=== PATIENT | male | born 1970 | race Caucasian/White ===

== ENCOUNTER → 2018-07-22 | Outpatient (CLI) | payer OTHER ==
[~2018-07-22] MED LIST: AMOX500C2 PO; HYDR-4226 PO; METFORMIN; NAPR-1071 PO; [UNRECOGNIZED DRUG - REMARK]
== END ==
LOC: WOUNDCARE 12:55
PROVIDERS: ATTEND Surgery
DX: L97.521 Non-pressure chronic ulcer of other part of left foot limited to breakdown of skin (principal); L97.321 Non-pressure chronic ulcer of left ankle limited to breakdown of skin; L98.491 Non-pressure chronic ulcer of skin of other sites limited to breakdown of skin; B35.3 Tinea pedis; B35.4 Tinea corporis; L98.1 Factitial dermatitis
CPT/HCPCS: 99215

== ENCOUNTER → 2018-07-29 | Outpatient (CLI) | payer OTHER | LOC: WOUNDCARE 13:17 | PROVIDERS: ATTEND Surgery | DX: L97.521 Non-pressure chronic ulcer of other part of left foot limited to breakdown of skin (principal); L97.321 Non-pressure chronic ulcer of left ankle limited to breakdown of skin; B35.3 Tinea pedis; L98.1 Factitial dermatitis | CPT/HCPCS: 99213 ==

== ENCOUNTER → 2018-08-12 | Outpatient (CLI) | payer OTHER | LOC: WOUNDCARE 13:05 | PROVIDERS: ATTEND Surgery | DX: L97.522 Non-pressure chronic ulcer of other part of left foot with fat layer exposed (principal); L97.321 Non-pressure chronic ulcer of left ankle limited to breakdown of skin; B35.3 Tinea pedis | CPT/HCPCS: 99212 ==

== ENCOUNTER → 2018-08-21 | Outpatient (CLI) | payer OTHER | LOC: WOUNDCARE 13:07 | PROVIDERS: ATTEND Surgery | DX: L97.522 Non-pressure chronic ulcer of other part of left foot with fat layer exposed (principal); B35.3 Tinea pedis | CPT/HCPCS: 99212 ==

== ENCOUNTER → 2018-08-26 | Outpatient (CLI) | payer OTHER | LOC: WOUNDCARE 13:08 | PROVIDERS: ATTEND Surgery | DX: L97.522 Non-pressure chronic ulcer of other part of left foot with fat layer exposed (principal); B35.3 Tinea pedis | CPT/HCPCS: 99212 ==

== ENCOUNTER → 2018-09-10 | Outpatient (CLI) | payer OTHER | LOC: WOUNDCARE 13:02 | PROVIDERS: ATTEND Surgery | DX: B35.3 Tinea pedis (principal); L97.522 Non-pressure chronic ulcer of other part of left foot with fat layer exposed | CPT/HCPCS: 99212 ==

== ENCOUNTER → 2019-04-21 | Outpatient (CLI) | payer OTHER | LOC: CARD 08:49 | PROVIDERS: ATTEND Internal Medicine Cardiovascular Disease | DX: E11.9 Type 2 diabetes mellitus without complications (principal); E78.5 Hyperlipidemia, unspecified; R07.9 Chest pain, unspecified; I51.7 Cardiomegaly; Z72.0 Tobacco use | CPT/HCPCS: 93306 ==

== ENCOUNTER → 2019-04-25 | Outpatient (CLI) | payer OTHER ==
[~2019-04-25] VITALS: Ht 183 cm; Wt 78.0 kg
[~2019-04-25] MED LIST changes: +CATHETER FLUSH 10 ML SYR IV PRN
--- NOTE | 2019-04-25 19:58 | STRESS TEST ---
DATE OF SERVICE: 04/25/2019 RESTING AND POST EXERCISE TECHNETIUM-99M TETROFOSMIN SPECT CT IMAGING ORDERING PHYSICIAN: Dr. Graham. CLINICAL DIAGNOSIS: Chest discomfort, diabetes mellitus, hyperlipidemia. Baseline images were carried out after injection of 10.78 mCi of technetium-99m Tetrofosmin. This was followed by exercise on a treadmill. [place] protocol was employed. Heart rate and blood pressure response to exercise were normal. There was considerable baseline artifact with exercise. There did not appear to be significant ST segment depression. There was approximately [address] segment depression in the immediate post-exercise phase. After the patient had attained more than 85% of maximum predicted heart rate and had indicated that he would not be able to go for more than another minute, 10.78 mCi of technetium-99m Tetrofosmin were injected and the exercise was continued for another minute. The patient attained 101% of maximum predicted heart rate. Test was stopped on account of fatigue. Review of images at rest and following stress does not indicate any significant perfusion defects consistent with myocardial ischemia or infarction. Gated images show normal global left ventricular systolic function with normal regional wall motion. Left ventricular ejection fraction is calculated to be 64%. Left ventricular end diastolic volume is 64 mL. TID is absent (1.05). CONCLUSIONS: 1. No evidence of any significant myocardial ischemia or infarction on this study. 2. Normal regional wall motion. 3. Normal global left ventricular systolic function with a calculated ejection fraction of 64%. Job ID: [id number] DocumentID: [id number] Dictated Date: 04/25/2019 17:35:13 Real Estate Closer Date: 04/25/2019 19:57:37 Dictated By: RICHARD GRAHAM MD, MA, FACP, FACC,
== END ==
LOC: CARD 07:38
PROVIDERS: ATTEND Internal Medicine Cardiovascular Disease
DX: R07.9 Chest pain, unspecified (principal); E11.9 Type 2 diabetes mellitus without complications; E78.5 Hyperlipidemia, unspecified; Z72.0 Tobacco use
CPT/HCPCS: 78452; 93017

== ENCOUNTER 2019-07-05 07:36 | Emergency (ER) | payer OTHER ==
[~2019-07-05] VITALS: Ht 182.8 cm; Wt 81.6 kg
[2019-07-05] VITALS (10 sets, daily range): BP systolic 69–114; BP diastolic 43–75
[~2019-07-05 07:36] MED LIST changes: -CATHETER FLUSH 10 ML SYR IV PRN
[2019-07-05 07:53] LABS: BASOPHILS % (AUTO) 0 % (0-10); EOSINOPHILS # (AUTO) 0.2 10^3/uL (0.0-0.3); EOSINOPHILS % (AUTO) 2 % (0-10); HEMATOCRIT 25 % (40-54); LYMPHOCYTES # (AUTO) 4.8 X 10^3 (1.0-4.0); LYMPHOCYTES % (AUTO) 46 % (12-44); MEAN CORPUSCULAR HEMOGLOBIN 31 PG (25-34); MEAN CORPUSCULAR HGB CONC 33 G/DL (32-36); MEAN CORPUSCULAR VOLUME 95 FL (80-99); MEAN PLATELET VOLUME 9.4 FL (7.4-10.4); MONOCYTES # (AUTO) 0.7 X 10^3 (0.0-1.0); MONOCYTES % (AUTO) 6 % (0-12); NEUTROPHILS # (AUTO) 4.8 X 10^3 (1.8-7.8); NEUTROPHILS % (AUTO) 46 % (42-75); PLATELET COUNT 192 10^3/uL (130-400); RED CELL DISTRIBUTION WIDTH 12.4 % (10.0-14.5); WHITE BLOOD COUNT 10.5 10^3/uL (4.3-11.0)
[2019-07-05] MEDS ORDERED: PANTOPRAZOLE 40 MG (PROTONIX) VIAL IV ONE (08:00)
[2019-07-05] MEDS ORDERED: ONDANSETRON 4 MG/2 ML (SDV) Z0FRAN IVP ONE (08:00)
[2019-07-05] MEDS ORDERED: FAMOTIDINE 20MG/2ML IV (PEPCID) IVP ONE (08:00)
[2019-07-05 08:06] LABS: ALBUMIN 2.9 GM/DL (3.2-4.5); CHLORIDE 107 MMOL/L (98-107); POTASSIUM 5.3 MMOL/L (3.6-5.0); SODIUM 137 MMOL/L (135-145)
[2019-07-05 08:07] LABS: CALCIUM 7.9 MG/DL (8.5-10.1)
[2019-07-05 08:09] LABS: GLUCOSE 376 MG/DL (70-105)
[2019-07-05 08:10] LABS: BILIRUBIN,TOTAL 0.2 MG/DL (0.1-1.0); CARBON DIOXIDE 21 MMOL/L (21-32)
[2019-07-05 08:12] LABS: ALKALINE PHOSPHATASE 60 U/L (40-136)
[2019-07-05 08:13] LABS: CREATININE SERUM 1.35 MG/DL (0.60-1.30); GFR ESTIMATED 57
--- OUTSIDE RECORDS SUMMARY | 2019-07-05 08:13 | XMS REPORT ---
Author Sean Ghotra Organization [employer] Address Unknown Phone Unavailable Care Team Providers Care Employment Training Specialist Name Role Phone JARON CHAPA CP Unavailable Allergies, Adverse Reactions, Alerts Substance Reaction Event Type N.K.D.A. Info Not Available Non Drug Allergy Problems Problem Type Condition Code Onset Dates Condition Statu s Assessment Dental examination Z01.20 Active Medications Medication Code System Code Instructions Start Date End Date Status Dosage Metformin HCl [facility] [address]-55 500 MG Orally Twice a day not defined Amoxicillin [facility] [address]-73 500 MG Orally 4 times daily 1 capsule Procedures Procedure Coding System Code Date INTRAORL-PERIAPICAL 1 FILM 19231 CPT-4 D0220 Oct 18, 2015 Billing Notes on claim CPT-4 EC109 Oct 17, 2 016 LTD ORAL EVALUATION - PROBLEM FOCUS CPT-4 D0140 Oct 18, 2015 Vital Signs Date/Time: Oct 18, 2015 Blood Pressure Diastolic 91 mmHg Blood Pressure Systolic 131 mmHg Results No Known Results Summary Purpose [employer] Submission
--- OUTSIDE RECORDS SUMMARY | 2019-07-05 08:13 | XMS REPORT ---
Author Author [employer] Organization [employer] Address [address] [address] Care Team Providers Care Paperhanger Pipe Name Role Phone SHARONCHJARON Unavailable Unavailable NO, LOCAL PHYSICIAN Unavailable Unavailable NEARING, KALEY Unavailable NEARING, KALEY Unavailable NEARING, KALEY Unavailable CHAYO BABCOCK APRN Unavailable Unavailable MAGGI FERNANDO MD Unavailable Unavailable CHAYO BABCOCK APRN Unavailable Unavailable RICHARD BLUNT MA Unavailable Unavailable Allergies Normalized Allergy Reported Date of Reaction(s) Care Provider Facility Allergy Type classification allergen Allergy Onset DA (11 Unclassified No Known Drug 10-16-2015 - no information CHAYO BABCOCK [facility] Via sources.) Allergies [facility] ([id number]) Medications Medication Ingredient Drug Dose Dates Status Sig Sig Care Class(es) (Normalized) (Original) Provid er no glipiZIDE Sulfonylure Active no GlipiZIDE no information a information Active name (2 (no sources.) phone) no ibuprofen Nonsteroida Active no ibuprofen no information l information Active name (2 Anti-inflam (no sources.) matory Drug phone) no Penicillin no Active no Penicillin G no information G information information Benzathine nam e (2 Benzathine Active (no sources.) phone) Problems Problem Normalized Date of Normalized Normalized Provider Fac ility Classification Problem(s) Problem Problem Problem Sta tus Onset/Resoluti Duration on Other and Cardiomegaly 04-22-2019 - Chronic Active OTONIEL GRIMES Via ill-defined [facility] heart disease [facility] (1 source.) [place] ([id number]) Nonspecific Chest pain, 04-22-2019 - Episodic Active OTONIEL ARMSTRONG Via chest pain (4 unspecified [facility] sources.) [facility] ([id number]) Other Factitial 04-18-2019 - Episodic Active MAGGI FERNANDO VC Via inflammatory dermatitis , MD [facility] condition of Hospital - skin (4 [place] sources.) ([id number]) Disorders of Hyperlipidemia 04-22-2019 - Chronic Active RICHARD ARRIAZA [facility] Via lipid , unspecified [facility] metabolism (4 Hospital - sources.) [place] ([id number]) Chronic ulcer Non-pressure 04-18-2019 - Chronic Active YAHAIRA FERNANDO [facility] Via of skin (21 chronic ulcer , MD [facility] sources.) of other part Hospital - of left foot [place] limited to ([id number]) breakdown of skin Translations: [ NON-PRS CHRONIC ULCER OF LEFT ANKLE LIMI, NON-PRS CHRONIC ULCER SKIN/ SITES LIMITE, NON-PRS CHRONIC ULCER OTH PRT LEFT FOOT ] Mycoses (15 Tinea pedis 04-18-2019 - Episodic Active MAGGI MCCAIN [facility] Via sources.) Translations: , MD [facility] [ [facility]] [place] ([id number]) Residual Tobacco use 04-22-2019 - Episodic Active RICHARD HOFFMAN [facility] Via codes; [facility] unclassified Hospital - (4 sources.) [place] ([id number]) Diabetes Type 2 04-22-2019 - Chronic Active RICHARD HOFFMAN , V Via mellitus diabetes [facility] without mellitus Hospital - complication without [place] (4 sources.) complications ([id number]) Procedures Procedure Normalized Procedure Procedure Result Performer Facility Date 07-12-2017 Dental bitewing single no information no name (no p sophie) [facility] ([id number]) 04-03-2017 Dental bitewing single no information no name (no p sophie) [facility] ([id number]) 07-12-2017 Extraction erupted no information no name (no phone ) [facility] tooth/exr [facility] ([id number]) 06-19-2017 Extraction erupted no information no name (no phone ) [facility] tooth/exr [facility] ([id number]) 04-03-2017 Extraction erupted no information no name (no phone ) [facility] tooth/exr [facility] ([id number]) 07-12-2017 Intraoral periapical no information no name (no phillip ne) [facility] ([id number]) 04-03-2017 Intraoral periapical no information no name (no phillip ne) [facility] ([id number]) 07-12-2017 Limit oral eval problm no information no name (no p sophie) [facility] ([id number]) 04-03-2017 Limit oral eval problm no information no name (no p sophie) [facility] ([id number]) Immunizations The data below is from unstructured sourcesNo immunization records. No Known Immunizations No Known Immunizations No Known Immunizations No Known Immunizations No Known Immunizations No Known Immunizations Results The data below is from unstructured sourcesNo Known Results No known relevant diagnostic tests, laboratory data and/or discharge summary.No known relevant diagnostic tests, laboratory data and/or discharge summary. No Results No Results No Results No Results No Results No Results Vital Signs The data below is from unstructured sources Blood pressure systolic 122 mmHg 2017-04-03 Blood pressure diastolic 83 mmHg 2017-04-03 Blood pressure systolic 133 mmHg 2017-06-19 Blood pressure diastolic 92 mmHg 2017-06-19 Blood pressure systolic 129 mmHg 2017-07-12 Blood pressure diastolic 88 mmHg 2017-07-12 Blood pressure systolic 129 mmHg 2017-07-12 Blood pressure diastolic 88 mmHg 2017-07-12 Interventions No Information Plan of Treatment The data below is from unstructured sources Activity Details Follow Up prn Reason:francisco/hygiene Activity Details Follow Up prn Reason:FRANCISCO Activity Details Follow Up prn Reason:francisco/hygiene Goals No Information Social History No Information Functional Status The data below is from unstructured sourcesNo functional status results. Mental Status No Information Encounters Encounter Normalized Encounter Encounter Diagnosis Care Provi marii Organization Date Type [facility] KALEY NEARING (no [facility] [employer] - DENTAL phone) DENTAL (no phon e) 07-12-2017 - 07-12-2017 06-19-2017 [facility] KAREN Dental caries, KALEY NEARING (no [facility] - DENTAL unspecified phone) DENTAL (no phillip ne) 06-19-2017 - 06-19-2017 04-03-2017 [facility] findings KALEY NEARING (no [facility] [employer] - DENTAL phone) DENTAL (no phon e) 04-03-2017 - 04-03-2017 05-26-2016 [facility] KALEY NEARING (no [facility] [employer] - DENTAL phone) DENTAL (no phon e) 05-26-2016 - 05-26-2016 10-18-2015 [facility] l findings JARON Hummel (n o [facility] - phone) (no phone) 10-18-2015 - 10-18-2015 10-16-2015 Emergency department no information no name (no phillip ne) no organization name - patient visit (no phone) 10-16-2015 10-16-2015 Emergency department no information CHAYO GODINEZ (no [facility] - patient visit phone) [facility] 10-16-2015 (no phone) 07-12-2017 Patient encounter no information no name (no phone) no organization name (no phone) 06-19-2017 Patient encounter no information no name (no phone) no organization name (no phone) 04-03-2017 Patient encounter no information no name (no phone) no organization name (no phone) 04-25-2019 Patient encounter no information RICHARD HOFFMAN MA FSCA I [facility] procedure (no phone) [facility] (no phone) 04-21-2019 Patient encounter no information ALI DALTON CAMARA FSCA I [facility] procedure (no phone) [facility] (no phone) 09-10-2018 Patient encounter no information no name (no phone) no organization name procedure (no phone) 09-10-2018 Patient encounter no information MAGGI FERNANDO MD (no [facility] procedure phone) [facility] (no phone) 08-26-2018 Patient encounter no information no name (no phone) no organization name procedure (no phone) 08-26-2018 Patient encounter no information MAGGI FERNANDO MD (no [facility] procedure phone) [facility] (no phone) 08-21-2018 Patient encounter no information no name (no phone) no organization name procedure (no phone) 08-21-2018 Patient encounter no information MAGGI FERNANDO MD (no [facility] procedure phone) [facility] (no phone) 08-12-2018 Patient encounter no information MAGGI FERNANDO MD (no [facility] procedure phone) [facility] (no phone) 07-29-2018 Patient encounter no information no name (no phone) no organization name procedure (no phone) 07-29-2018 Patient encounter no information MAGGI FERNANDO MD (no [facility] procedure phone) [facility] (no phone) 07-22-2018 Patient encounter no information no name (no phone) no organization name procedure (no phone) 07-22-2018 Patient encounter no information MAGGI FERNANDO MD (no [facility] procedure phone) [facility] (no phone) Medical Equipment No Information Payers No Information Summary Purpose [employer]ClinicalWorks Submission Discharge Instructions No hospital discharge instructions. Additional Source Comments This clinical document has been generated using [employer] software that has been certified by the Office of the National Coordinator for Health Information Technology (ONC 15.99.04.3023.Diam.31.00.0.381688) and the National Committee for Beet Flumer (NCQA, as an eMeasure certified technology). FOR RECORDS PERTAINING TO PATIENTS WHO ARE OR HAVE BEEN ENROLLED IN A CHEMICAL D EPENDENCY/SUBSTANCE ABUSE PROGRAM, SOME INFORMATION MAY BE OMITTED. This clinica l summary was aggregated from multiple sources. Caution should be exercised in using it in the provision of clinical care. This summary normalizes information from multiple sources, and as a consequence, information in this document may ma terially change the coding, format and clinical context of patient data. In geremias tion, data may be omitted in some cases. CLINICAL DECISIONS SHOULD BE BASED ON T HE PRIMARY CLINICAL RECORDS. [employer] provides no warranty or guara ntee of the accuracy or completeness of information in this document.The followi ng information is based on time limited clinical information UNRECOGNIZED CONTENT PROVIDED BELOW FOR UNRECOGNIZED SECTION MEDICAL (GENERAL) HISTORY Type Description Date Medical History Diabetes Medical History Anxiety
--- OUTSIDE RECORDS SUMMARY | 2019-07-05 08:13 | XMS REPORT ---
Author Author Sean BAINS Organization [facility] Address Unknown Care Team Providers Care Tool Room Machinist Name Role Phone KALEY BAINS Unavailable PROBLEMS Unknown Problems ALLERGIES No Known Allergies ENCOUNTERS Encounter Location Date Diagnosis [facility] [address] [id number] [address] [place] [address] [phone] July, Dental examination Z01.20 an d Dental caries K02.9 [facility] [address] [id number] [address] [place] [address] [id number] Jun, Dental caries K02.9 [facility] [address] [id number] [address] [place] [address] [phone] Mar, Dental examination Z01.20 an d Dental caries K02.9 [facility] [address] [id number] [address] [place] [address] [phone] May, Dental examination Z01.20 an d Dental caries K02.9 [facility] [address] [id number] [address] [address] Oct, Dental examination Z01.20 IMMUNIZATIONS No Known Immunizations SOCIAL HISTORY Never Assessed REASON FOR VISIT david PLAN OF CARE Activity Details Follow Up prn Reason:minerva/hygiene VITAL SIGNS Blood pressure systolic 129 mmHg 2017-07-12 Blood pressure diastolic 88 mmHg 2017-07-12 MEDICATIONS Medication Instructions Dosage Frequency Start Date End Date Duration S tatus ibuprofen Active Penicillin G Benzathine Active Metformin HCl 500 MG Orally Twice a day 12h Active GlipiZIDE Active RESULTS No Results PROCEDURES Procedure Date Ordered Result Body Site LTD ORAL EVALUATION - PROBLEM FOCUS July 12, 2017 INTRAORL-PERIAPICAL 1 FILM [id number] July 12, 2017 EXTRAC ERUPTED TOOTH/EXPOSED ROOT July 12, 2017 BITEWING - SINGLE FILM July 12, 2017 INSTRUCTIONS MEDICATIONS ADMINISTERED No Known Medications MEDICAL (GENERAL) HISTORY Type Description Date Medical History Diabetes Medical History Anxiety
--- OUTSIDE RECORDS SUMMARY | 2019-07-05 08:13 | XMS REPORT | Continuity of Care Document ---
Author Organization Unknown Address Unknown Phone Unavailable Allergies Active Description Code Type Severity Reaction Onset Reported/Identified Relationship to Patient Clinical Status Yes No Known Drug Allergies [id number] Drug Allergy Unknown N/A 10/16/2015 Medications There is no data. Problems Date Dx Coded Attending Type Code Diagnosis Diagnosed By 10/16/2015 CHAYO BABCOCK APRN Ot K02 .9 DENTAL CARIES, UNSPECIFIED 10/16/2015 CHAYO BABCOCK APRN Ot K08 .8 OTHER SPECIFIED DISORDERS OF TEETH AND S 10/18/2015 CHAYO BABCOCK APRN Ot K02 .9 DENTAL CARIES, UNSPECIFIED 10/18/2015 CHAYO BABCOCK APRN Ot K08 .8 OTHER SPECIFIED DISORDERS OF TEETH AND S 10/21/2015 CHAYO BABCOCK APRN Ot K02 .9 DENTAL CARIES, UNSPECIFIED 10/21/2015 CHAYO BABCOCK APRN Ot K08 .8 OTHER SPECIFIED DISORDERS OF TEETH AND S 10/21/2015 CHAYO BABCOCK APRN Ot K02 .9 DENTAL CARIES, UNSPECIFIED 10/21/2015 CHAYO BABCOCK APRN Ot K08 .8 OTHER SPECIFIED DISORDERS OF TEETH AND S 10/23/2015 CHAYO BABCOCK APRN Ot K02 .9 DENTAL CARIES, UNSPECIFIED 10/23/2015 CHAYO BABCOCK APRN Ot K08 .8 OTHER SPECIFIED DISORDERS OF TEETH AND S 07/29/2018 MAGGI FERNANDO MD Ot B35 .3 TINEA PEDIS 07/29/2018 MAGGI FERNANDO MD Ot B35 .4 TINEA CORPORIS 07/29/2018 MAGGI FERNANDO MD Ot L97.321 NON-PRS CHRONIC ULCER OF LEFT ANKLE LIMI 07/29/2018 MAGGI FERNANDO MD Ot L97.521 NON-PRS CHRONIC ULCER OTH PRT L FOOT HWOARD 07/29/2018 MAGGI FERNANDO MD Ot L98 .1 FACTITIAL DERMATITIS 07/29/2018 MAGGI FERNANDO MD Ot L98.491 NON-PRS CHRONIC ULCER SKIN/ SITES LIMITE 08/01/2018 ABDULLAHI MORALES, MAGGI Magallanes Ot B35 .3 TINEA PEDIS 08/01/2018 ABDULLAHI MORALES, MAGGI Magallanes Ot L97.321 NON-PRS CHRONIC ULCER OF LEFT ANKLE LIMI 08/01/2018 ABDULLAHI MORALES, MAGGI Magallanes Ot L97.521 NON-PRS CHRONIC ULCER OTH PRT L FOOT HOWARD 08/01/2018 MAGGI FERNANDO MD Ot L98 .1 FACTITIAL DERMATITIS 08/16/2018 MAGGI FERNANDO MD Ot B35 .3 TINEA PEDIS 08/16/2018 ABDULLAHI MORALES, MAGGI Magallanes Ot L97.321 NON-PRS CHRONIC ULCER OF LEFT ANKLE LIMI 08/16/2018 MAGGI FERNANDO MD Ot L97.522 NON-PRS CHRONIC ULCER OTH PRT LEFT FOOT 08/23/2018 MAGGI FERNANDO MD Ot B35 .3 TINEA PEDIS 08/23/2018 MAGGI FERNANDO MD Ot L97.522 NON-PRS CHRONIC ULCER OTH PRT LEFT FOOT 08/29/2018 MAGGI FERNANDO MD Ot B35 .3 TINEA PEDIS 08/29/2018 MAGGI FERNANDO MD Ot L97.522 NON-PRS CHRONIC ULCER OTH PRT LEFT FOOT 09/13/2018 MAGGI FERNANDO MD Ot B35 .3 TINEA PEDIS 09/13/2018 ABDULLAHI MORALES, MAGGI Magallanes Ot L97.522 NON-PRS CHRONIC ULCER OTH PRT LEFT FOOT 04/18/2019 MAGGI FERNANDO MD Ot B35 .3 TINEA PEDIS 04/18/2019 ABDULLAHI MORALES, MAGGI Magallanes Ot B35 .4 TINEA CORPORIS 04/18/2019 ABDULLAHI MORALES, MAGGI Magallanes Ot L97.321 NON-PRS CHRONIC ULCER OF LEFT ANKLE LIMI 04/18/2019 MAGGI FERNANDO MD Ot L97.521 NON-PRS CHRONIC ULCER OTH PRT L FOOT HOWARD 04/18/2019 MAGGI FERNANDO MD Ot L98 .1 FACTITIAL DERMATITIS 04/18/2019 MAGGI FERNANDO MD Ot L98.491 NON-PRS CHRONIC ULCER SKIN/ SITES LIMITE 04/18/2019 MAGGI FERNANDO MD Ot B35 .3 TINEA PEDIS 04/18/2019 ABDULLAHI MORALES, MAGGI Magallanes Ot L97.321 NON-PRS CHRONIC ULCER OF LEFT ANKLE LIMI 04/18/2019 ABDULLAHI MORALES, MAGGI Magallanes Ot L97.521 NON-PRS CHRONIC ULCER OTH PRT L FOOT HOWARD 04/18/2019 ABDULLAHI MORALES, MAGGI Magallanes Ot L98 .1 FACTITIAL DERMATITIS 04/18/2019 ABDULLAHI MORALES, MAGGI Magallanes Ot B35 .3 TINEA PEDIS 04/18/2019 ABDULLAHI MORALES, MAGGI Magallanes Ot L97.321 NON-PRS CHRONIC ULCER OF LEFT ANKLE LIMI 04/18/2019 ABDULLAHI MORALES, MAGGI Magallanes Ot L97.522 NON-PRS CHRONIC ULCER OTH PRT LEFT FOOT 04/18/2019 ABDULLAHI MORALES, MAGGI Magallanes Ot B35 .3 TINEA PEDIS 04/18/2019 ABDULLAHI MORALES, MAGGI Magallanes Ot L97.522 NON-PRS CHRONIC ULCER OTH PRT LEFT FOOT 04/18/2019 ABDULLAHI MORALES, MAGGI Magallanes Ot B35 .3 TINEA PEDIS 04/18/2019 ABDULLAHI MORALES, MAGGI Magallanes Ot L97.522 NON-PRS CHRONIC ULCER OTH PRT LEFT FOOT 04/18/2019 ABDULLAHI MORALES, MAGGI Magallanes Ot B35 .3 TINEA PEDIS 04/18/2019 ABDULLAHI MORALES, MAGGI Magallanes Ot L97.522 NON-PRS CHRONIC ULCER OTH PRT LEFT FOOT 04/22/2019 DALTON MORALES FACC, ALI FACP CCDS Ot E11.9 TYPE 2 DIABETES MELLITUS WITHOUT COMPLIC 04/22/2019 DALTON MORALES FACC, ALI FACP CCDS Ot E78.5 HYPERLIPIDEMIA, UNSPECIFIED 04/22/2019 DALTON MORALES FACC, ALI FACP CCDS Ot I51.7 CARDIOMEGALY 04/22/2019 DALTON MROALES FACC, ALI FACP CCDS Ot R07.9 CHEST PAIN, UNSPECIFIED 04/22/2019 DALTON MORALES FACC, ALI FACP CCDS Ot Z72.0 TOBACCO USE 04/28/2019 DALTON MORALES FACC, ALI FACP CCDS Ot E11.9 TYPE 2 DIABETES MELLITUS WITHOUT COMPLIC 04/28/2019 DALTON MORALES FACC, ALI FACP CCDS Ot E78.5 HYPERLIPIDEMIA, UNSPECIFIED 04/28/2019 DALTON MORALES FACC, ALI FACP CCDS Ot R07.9 CHEST PAIN, UNSPECIFIED 04/28/2019 DALTON MORALES FACC, ALI FACP CCDS Ot Z72.0 TOBACCO USE 05/01/2019 DALTON MORALES FACC, ALI FACP CCDS Ot E11.9 TYPE 2 DIABETES MELLITUS WITHOUT COMPLIC 05/01/2019 DALTON MORALES FACC, ALI FACP CCDS Ot E78.5 HYPERLIPIDEMIA, UNSPECIFIED 05/01/2019 DALTON MORALES FACC, ALI FACP CCDS Ot R07.9 CHEST PAIN, UNSPECIFIED 05/01/2019 DALTON MORALES FACC, ALI FACP CCDS Ot Z72.0 TOBACCO USE 05/20/2019 DALTON MORALES FACC, ALI FACP CCDS Ot E11.9 TYPE 2 DIABETES MELLITUS WITHOUT COMPLIC 05/20/2019 DALTON MORALES FACC, ALI FACP CCDS Ot E78.5 HYPERLIPIDEMIA, UNSPECIFIED 05/20/2019 DALTON MORALES FACC, ALI FACP CCDS Ot R07.9 CHEST PAIN, UNSPECIFIED 05/20/2019 DALTON MORALES FACC, ALI FACP CCDS Ot Z72.0 TOBACCO USE 07/01/2019 MAGGI FERNANDO MD Ot B35 .3 TINEA PEDIS 07/01/2019 MAGGI FERNANDO MD Ot B35 .4 TINEA CORPORIS 07/01/2019 MAGGI FERNANDO MD Ot L97.321 NON-PRS CHRONIC ULCER OF LEFT ANKLE LIMI 07/01/2019 MAGGI FERNANDO MD Ot L97.521 NON-PRS CHRONIC ULCER OTH PRT L FOOT HOWARD 07/01/2019 MAGGI FERNANDO MD Ot L98 .1 FACTITIAL DERMATITIS 07/01/2019 MAGGI FERNANDO MD Ot L98.491 NON-PRS CHRONIC ULCER SKIN/ SITES LIMITE 07/01/2019 DALTON SOFIAC, RICHARD FACP CCDS Ot E11.9 TYPE 2 DIABETES MELLITUS WITHOUT COMPLIC 07/01/2019 DALTON MORALES [facility], RICHARD FACP CCDS Ot E78.5 HYPERLIPIDEMIA, UNSPECIFIED 07/01/2019 DALTON MORALES FACC, ALI FACP CCDS Ot R07.9 CHEST PAIN, UNSPECIFIED 07/01/2019 DALTON MORALES FACC, ALI FACP CCDS Ot Z72.0 TOBACCO USE 07/01/2019 DALTON MORALES FACC, ALI FACP CCDS Ot E11.9 TYPE 2 DIABETES MELLITUS WITHOUT COMPLIC 07/01/2019 DALTON MORALES FACC, ALI FACP CCDS Ot E78.5 HYPERLIPIDEMIA, UNSPECIFIED 07/01/2019 DALTON MD [facility], ALI FACP CCDS Ot I51.7 CARDIOMEGALY 07/01/2019 DALTON MD FAC, ALI FACP CCDS Ot R07.9 CHEST PAIN, UNSPECIFIED 07/01/2019 DALTON MD FACC, ALI FACP CCDS Ot Z72.0 TOBACCO USE 07/01/2019 DALTON MD FACC, ALI FACP CCDS Ot E11.9 TYPE 2 DIABETES MELLITUS WITHOUT COMPLIC 07/01/2019 DALTON MD FACC, ALI FACP CCDS Ot E78.5 HYPERLIPIDEMIA, UNSPECIFIED 07/01/2019 DALTON MD FAC, ALI FACP CCDS Ot R07.9 CHEST PAIN, UNSPECIFIED 07/01/2019 DALTON MD FACC, ALI FACP CCDS Ot Z72.0 TOBACCO USE 07/02/2019 [facility], ALI FACP CCDS Ot E11.9 TYPE 2 DIABETES MELLITUS WITHOUT COMPLIC 07/02/2019 [facility] MD [facility], ALI FACP CCDS Ot E78.5 HYPERLIPIDEMIA, UNSPECIFIED 07/02/2019 [facility] MD [facility], ALI FACP CCDS Ot R07.9 CHEST PAIN, UNSPECIFIED 07/02/2019 DALTON MD [facility], ALI FACP CCDS Ot Z72.0 TOBACCO USE Procedures There is no data. Results Test Result Range Complete blood count (CBC) with automate d white blood cell (WBC) differential - 07/05/19 07:40 Blood leukocytes automated count (number/volume) 10.5 10*3/uL 4.3-11.0 Blood erythrocytes automated count (number/volume) 2.59 10*6/uL 4.35-5.85 Venous blood hemoglobin measurement (mass/volume) 8.0 g/dL 13.3-17.7 Blood hematocrit (volume fraction) 25 % 40-54 Automated erythrocyte mean corpuscular volume 95 [ foz_us] 80-99 Automated erythrocyte mean corpuscular h emoglobin (mass per erythrocyte) 31 pg 25-34 Automated erythrocyte mean corpuscular h emoglobin concentration measurement (mass/volume) 33 g/dL 32-36 Automated erythrocyte distribution width ratio 12. 4 % 10.0- 14.5 Automated blood platelet count (count/volume) 192 10*3/uL 130-400 Automated blood platelet mean volume measurement 9.4 [foz_us] 7.4-10.4 Automated blood neutrophils/100 leukocytes 46 % 42-75 Automated blood lymphocytes/100 leukocytes 46 % 12-44 Blood monocytes/100 leukocytes 6 % 0-12 Automated blood eosinophils/100 leukocytes 2 % 0-10 Automated blood basophils/100 leukocytes 0 % 0-10 Blood neutrophils automated count (number/volume) 4.8 10*3 1.8-7.8 Blood lymphocytes automated count (number/volume) 4.8 10*3 1.0-4.0 Blood monocytes automated count (number/volume) 0. 7 10*3 0.0-1.0 Automated eosinophil count 0.2 10*3/uL 0 .0-0.3 Automated blood basophil count (count/volume) 0.0 10*3/uL 0.0-0.1 Comprehensive metabolic panel - 07/05/19 07:40 Serum or plasma sodium measurement (moles/volume) 137 mmol/L 135-145 Serum or plasma potassium measurement (moles/volume) 5.3 mmol/L 3.6-5.0 Serum or plasma chloride measurement (moles/volume) 107 mmol/L 98-107 Carbon dioxide 21 mmol/L 21-32 Serum or plasma anion gap determination (moles/volume) 9 mmol/L 5-14 Serum or plasma glucose measurement (mass/volume) 376 mg/dL 70-105 Serum or plasma calcium measurement (mass/volume) 7.9 mg/dL 8.5-10.1 Serum or plasma total bilirubin measurement (mass/volu me) 0.2 mg/dL 0.1-1.0 Serum or plasma protein measurement (mass/volume) 5.0 g/dL 6.4-8.2 Serum or plasma albumin measurement (mass/volume) 2.9 g/dL 3.2-4.5 CALCIUM CORRECTED 8.8 mg/dL 8.5-10.1 Blood type T Indirect antibody screen pa shon - 07/05/19 07:40 ABO+Rh group AP NRG Serum or plasma C reactive protein measu rement (mass/volume) - 07/05/19 07:40 Serum or plasma C reactive protein measurement (mass/v olume) 0.34 mg/dL 0.00-0.50 Encounters ACCT No. Visit Date/Time Discharge Status Pt. Type Provider Facility Loc./Unit Complaint [id number] 04/25/2019 07:38:00 23:59:59 CLS Outpatient RICHARD HOFFMAN MD, FACC, FACP CC DS [facility] CARD CHEST DISCO ORT [id number] 04/21/2019 08:49:00 23:59:59 CLS Outpatient RICHARD HOFFMAN MD, FACC, FACP CC DS [facility] CARD CHEST DISCO MFORT [id number] 09/10/2018 13:02:00 23:59:59 CLS Outpatient MAGGI FERNANDO MD [facility] WOUNDCARE [id number] 08/26/2018 13:08:00 23:59:59 CLS Outpatient MAGGI FERNANDO MD [facility] WOUNDCARE [id number] 08/21/2018 13:07:00 23:59:59 CLS Outpatient MAGGI FERNANDO MD [facility] WOUNDCARE [id number] 08/12/2018 13:05:00 23:59:59 CLS Outpatient MAGGI FERNANDO MD [facility] WOUNDCARE [id number] 07/29/2018 13:17:00 23:59:59 CLS Outpatient MAGGI FERNANDO MD [facility] WOUNDCARE [id number] 07/22/2018 12:55:00 23:59:59 CLS Outpatient MAGGI FERNANDO MD [facility] WOUNDCARE [id number] 10/16/2015 12:08:00 12:31:00 DIS Emergency CHAYO BABCOCK APRN [facility] ER DENTAL PAIN [id number] 07/05/2019 07:54:00 Document Registration
--- OUTSIDE RECORDS SUMMARY | 2019-07-05 08:13 | XMS REPORT ---
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 Name Role Phone KALEY BAINS Unavailable PROBLEMS Unknown Problems ALLERGIES No Known Allergies ENCOUNTERS Encounter Location Date Diagnosis [facility] [address] [id number] [address] [place] [address] [id number] July, Dental examination Z01.20 an d Dental caries K02.9 [facility] [address] [id number] [address] [place] [address] [id number] Jun, Dental caries K02.9 [facility] [address] [id number] [address] [place] [address] [id number] Mar, Dental examination Z01.20 an d Dental caries K02.9 [facility] [address] [id number] [address] [place] [address] [id number] May, Dental examination Z01.20 an d Dental caries K02.9 [facility] [address] [id number] [address], [place] [address] Oct, Dental examination Z01.20 IMMUNIZATIONS No Known Immunizations SOCIAL HISTORY Never Assessed REASON FOR VISIT david PLAN OF CARE Activity Details Follow Up prn Reason:FRANCISCO VITAL SIGNS Blood pressure systolic 133 mmHg 2017-06-19 Blood pressure diastolic 92 mmHg 2017-06-19 MEDICATIONS Medication Instructions Dosage Frequency Start Date End Date Duration S tatus Penicillin G Benzathine Active Metformin HCl 500 MG Orally Twice a day 12h Active GlipiZIDE Active ibuprofen Active RESULTS No Results PROCEDURES Procedure Date Ordered Result Body Site EXTRAC ERUPTED TOOTH/EXPOSED ROOT June 19, 2017 INSTRUCTIONS MEDICATIONS ADMINISTERED No Known Medications MEDICAL (GENERAL) HISTORY Type Description Date Medical History Diabetes Medical History Anxiety
[2019-07-05 08:14] LABS: BUN/CREATININE RATIO 27
[2019-07-05 08:15] LABS: ALANINE AMINOTRANSFERASE 24 U/L (0-55); MAGNESIUM 1.7 MG/DL (1.6-2.4)
[2019-07-05 08:16] LABS: LIPASE 37 U/L (8-78)
[2019-07-05] MEDS ORDERED: NS IV 1000 ML 1,000 ML IV ONE (08:17)
[2019-07-05] MEDS ORDERED: OCTREOTIDE INJECTION 50 MCG in NS (IVPB) 50 ML IV ONE (08:30)
[2019-07-05] MEDS ORDERED: NS IV 500 ML 500 ML ONE (08:37)
[2019-07-05 08:38] LABS: PROTHROMBIN TIME PATIENT 13.7 SEC (12.2-14.7)
--- NOTE | 2019-07-05 08:43 | ED GI ---
General Chief Complaint: Abdominal/GI Problems Stated Complaint: GI BLEED Source of Information: Patient Exam Limitations: No Limitations History of Present Illness Date Seen by Provider: Jul 05, 2019 Time Seen by Provider: 07:37 Initial Comments This 49-year-old gentleman presents to the emergency room with hematemesis and melenic diarrhea at home this morning. EMS reports the amount of blood on scene was profound. He has been hypotensive for EMS with blood pressures in the 80s and 90s systolic. Systolic blood pressures are in the 90s on arrival. Patient is alert and oriented but lethargic. He admits to drinking 2 or 3 shots of hard alcohol whenever he can get it which is more days than not. He denies any history of esophageal varices, ulcers, or other GI bleeding. He denies ever undergoing endoscopy. He is a diabetic with blood sugars in the 300s. He is also undergoing wound care for a right great toe wound. He denies use of any blood thinning medications. Initial temperature for EMS was 94.4. Allergies and Home Medications Allergies Coded Allergies: No Known Drug Allergies (Unverified , 10/16/15) Patient Home Medication List Home Medication List Reviewed: Yes Review of Systems Review of Systems Constitutional: no symptoms reported EENTM: No Symptoms Reported Respiratory: No Symptoms Reported Cardiovascular: No Symptoms Reported Gastrointestinal: See HPI Genitourinary: No Symptoms Reported Musculoskeletal: no symptoms reported Skin: no symptoms reported Psychiatric/Neurological: No Symptoms Reported Endocrine: No Symptoms Reported Hematologic/Lymphatic: See HPI Past Uytogcv-Flpnnn-Lrwkxs Hx Past Med/Social Hx: Reviewed and Corrections made Patient Social History Alcohol Use: Regular Use Recent Hopitalizations: No Seasonal Allergies Seasonal Allergies: No Past Medical History Surgeries: No (none known) Respiratory: No Cardiac: No Neurological: No Reproductive Disorders: No Gastrointestinal: No Musculoskeletal: No Endocrine: Yes Diabetes, Non-Insulin dep HEENT: No Cancer: No Psychosocial: Yes PTSD Physical Exam Vital Signs Vital Signs - First Documented 07/05/19 07:37 Temp 34.7 Pulse 103 Resp 12 B/P (MAP) 100/64 (76) Pulse Ox 97 O2 Delivery Room Air Capillary Refill : Height/Weight/BMI Height: 5'8" Weight: 200lbs. oz. 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4 FL Neutrophils (%) (Auto) 46 42-75 % Lymphocytes (%) (Auto) 46 H 12-44 % Monocytes (%) (Auto) 6 0-12 % Eosinophils (%) (Auto) 2 0-10 % Basophils (%) (Auto) 0 0-10 % Neutrophils # (Auto) 4.8 1.8-7.8 X 10^3 Lymphocytes # (Auto) 4.8 H 1.0-4.0 X 10^3 Monocytes # (Auto) 0.7 0.0-1.0 X 10^3 Eosinophils # (Auto) 0.2 0.0-0.3 10^3/uL Basophils # (Auto) 0.0 0.0-0.1 10^3/uL Prothrombin Time 13.7 12.2-14.7 SEC INR Comment 1.0 0.8-1.4 Activated Partial Thromboplast Time 24 24-35 SEC Sodium Level 137 135-145 MMOL/L Potassium Level 5.3 H 3.6-5.0 MMOL/L Chloride Level 107 98-107 MMOL/L Carbon Dioxide Level 21 21-32 MMOL/L Anion Gap 9 5-14 MMOL/L Blood Urea Nitrogen 36 H 7-18 MG/DL Creatinine 1.35 H 0.60-1.30 MG/DL Estimat Glomerular Filtration Rate 57 BUN/Creatinine Ratio 27 Glucose Level 376 H 70-105 MG/DL Calcium Level 7.9 L 8.5-10.1 MG/DL Corrected Calcium 8.8 8.5-10.1 MG/DL Magnesium Level 1.7 1.6-2.4 MG/DL Total Bilirubin 0.2 0.1-1.0 MG/DL Aspartate Amino Transf (AST/SGOT) 19 5-34 U/L Alanine Aminotransferase (ALT/SGPT) 24 0-55 U/L Alkaline Phosphatase 60 40-136 U/L C-Reactive Protein High Sensitivity 0.34 0.00-0.50 MG/DL Total Protein 5.0 L 6.4-8.2 GM/DL Albumin 2.9 L 3.2-4.5 GM/DL Lipase 37 8-78 U/L Serum Alcohol < 10 <10 MG/DL My Orders Orders - SEN VIERA MD Alcohol (07/05/19 07:46) Cbc With Automated Diff (07/05/19 07:46) Comprehensive Metabolic Panel (07/05/19 07:46) Hs C Reactive Protein (07/05/19 07:46) Lipase (07/05/19 07:46) Magnesium (07/05/19 07:46) Ed Iv/Invasive Line Start (07/05/19 07:46) Monitor-Rhythm Ecg Trace Only (07/05/19 07:46) Red Cells Leukocytes Reduced (07/05/19 07:46) Famotidine Injection (Pepcid Injection) (07/05/19 08:00) Pantoprazole Injection (Protonix Injecti (07/05/19 08:00) Ondansetron Injection (Zofran Injectio (07/05/19 08:00) Type And Screen (07/05/19 07:46) Ns Iv 1000 Ml (Sodium Chloride 0.9%) (07/05/19 08:17) Protime With Inr (07/05/19 08:21) Partial Thromboplastin Time (07/05/19 08:21) Octreotide Injection (Sandostatin Inje (07/05/19 08:30) Ns Iv 500 Ml (Sodium Chloride 0.9%) (07/05/19 08:37) Ns (Ivpb) (Sodium C... W/Tranexamic Acid (07/05/19 09:00) Tranexamic Acid Injection (Cyklokapron I (07/05/19 09:00) Red Cells Leukocytes Reduced (07/05/19 07:40) Ns Iv 1000 Ml (Sodium Chloride 0.9%) (07/05/19 09:30) Fresh Frozen Plasma (07/05/19 07:40) Red Cells Leukocytes Reduced (07/05/19 07:40) Medications Given in ED Current Medications Medications Dose Ordered Sig/Ian Route Start Time Stop Time Status Last Admin Dose Admin Famotidine 20 mg ONCE ONCE IVP 07/05/19 08:00 07/05/19 08:01 DC 07/05/19 08:07 20 MG Octreotide Acetate 50 mcg/ Sodium Chloride 51 ml @ 204 mls/hr ONCE ONCE IV 07/05/19 08:30 07/05/19 08:44 DC 07/05/19 08:59 204 MLS/HR Ondansetron HCl 8 mg ONCE ONCE IVP 07/05/19 08:00 07/05/19 08:01 DC 07/05/19 08:06 8 MG Pantoprazole 80 mg ONCE ONCE IV 07/05/19 08:00 07/05/19 08:01 DC 07/05/19 08:10 80 MG Sodium Chloride 500 ml @ ud STK-MED ONCE .ROUTE 07/05/19 08:37 07/05/19 08:45 DC 07/05/19 08:58 500 MLS/HR Sodium Chloride 1,000 ml @ 0 mls/hr Q0M ONCE IV 07/05/19 08:17 07/05/19 08:18 DC 07/05/19 08:21 1,000 MLS/HR Tranexamic Acid 1000 mg/Sodium Chloride 110 ml @ 330 mls/hr ONCE ONCE IV 07/05/19 09:00 07/05/19 09:19 DC 07/05/19 09:12 330 MLS/HR Vital Signs/I&O 07/05/19 07/05/19 07/05/19 07/05/19 07:37 08:49 09:02 09:16 Temp 34.7 36.1 36.3 Pulse 103 101 73 79 Resp 12 22 22 26 B/P (MAP) 100/64 (76) 70/50 75/43 69/46 Pulse Ox 97 97 93 98 O2 Delivery Room Air Room Air 07/05/19 07/05/19 07/05/19 07/05/19 09:27 09:37 09:43 10:03 Temp 36.2 36.3 36.2 36.3 Pulse 79 87 68 77 Resp 13 24 15 13 B/P (MAP) 69/46 85/55 92/63 85/62 Pulse Ox 98 99 99 98 O2 Delivery Room Air 07/05/19 07/05/19 07/05/19 10:31 10:53 11:10 Temp 36.5 36.6 36.6 Pulse 65 78 84 Resp 18 12 12 B/P (MAP) 97/56 106/75 114/73 (85) Pulse Ox 100 100 100 O2 Delivery Room Air Room Air Room Air Progress Progress Note #1: Time: 08:35 Progress Note Patient is receiving a second liter of IV fluid as his systolic blood pressure dropped to 81 after the first liter. We have blood products pending and will be initiated as soon as possible. He has received Protonix 80 mg IV, Pepcid 20 mg IV, and Zofran 8 mg IV. An octreotide bolus will also be given. I discussed the case with Dr. Roe, surgeon cashier receptionist. Since patient admits to drinking often, we should presume he may have esophageal varices. For this reason, he remaineds transfer to a facility capable of managing esophageal varices. Patient has requested transfer to [facility] in [place]. Progress Note #2: Time: 08:57 Progress Note I spoke with Dr. Lujan, hospitalist, and Dr. Horvath, classroom assistant, at [facility]. They except patient. Dr. Lujan agreed with octreotide and arline mmended starting tranexamic acid as well. Patient is still hypertensive at this time and is receiving 2 units of blood. He will not be transferred until his blood pressure is stable. He has had no further vomiting or diarrhea since arrival. Patient's temperature improved to 36.1. Progress Note #3: Time: 09:46 Progress Note Patient was still hypotensive with systolic blood pressures all the way down into the upper 60s after 2 L of saline and one unit of red blood cells. He is receiving a second unit now and a third liter of IV fluids. A unit of plasma is also being initiated. Blood pressure is now up to 85/55. We will ensure he has stable serial blood pressures before transfer. If we cannot stabilize him well enough here, he will go for immediate endoscopy with Dr. Roe. Dr. Roe has been updated. Progress Note #4: Time: 10:31 Progress Note Patient has now had multiple normal serial blood pressures. He has received 3 L of IV fluid, 3 units of blood, and will be receiving plasma. He is now stable for transfer. Rian has been updated. Progress Note #5: Progress Note Patient was much more alert and talkative prior to transfer. Had no further episodes of hematemesis. Departure Impression Primary Impression: Upper GI bleed Additional Impressions: Hypotension Qualified Codes: I95.89 - Other hypotension; E86.1 - Hypovolemia Hematemesis Qualified Codes: K92.0 - Hematemesis Anemia Qualified Codes: D64.9 - Anemia, unspecified Disposition: 02 XFER SHT-TRM HOSP Condition: Stable Transfer Transfer Reason: Exceeds level of care Time Spoke to Accepting Phy: 08:35 Transfer Progress Notes Accepted by Dr. Lujan, hospitalist at [facility] in [place]. Transfer Time: 11:10 Transfer Facility: [facility] Method of Transfer: EMS Departure-Patient Inst. Referrals: NO,LOCAL PHYSICIAN (PCP/Family) Primary Care Physician SEN VIERA MD Jul 05, 2019 08:43
[2019-07-05] MEDS ORDERED: TRANEXAMIC ACID INJECTION 1,000 MG in NS (IVPB) 100 ML IV ONE (09:00)
[2019-07-05] MEDS ORDERED: TRANEXAMIC ACID INJECTION 1,000 MG in NS (IVPB) 250 ML IV SCH (09:00)
[2019-07-05] MEDS ORDERED: NS IV 1000 ML 1,000 ML IV SCH (09:30)
--- NOTE | 2019-07-05 10:25 | NUR ---
dispatch called at this time
== END 2019-07-05 11:10 | disposition short-term general hospital (02) ==
LOC: EDUNIT# 07:36 → ER 07:37
DX: K92.2 Gastrointestinal hemorrhage, unspecified (principal); I95.9 Hypotension, unspecified; K92.0 Hematemesis; D64.9 Anemia, unspecified; E11.9 Type 2 diabetes mellitus without complications
CPT/HCPCS: 36415; 80053; 80320; 83690; 83735; 85025; 85610; 85730; 86141; 86850; 86900; 86901; 86920; 93041

== ENCOUNTER 2020-04-14 20:52 | Emergency (ER) | payer OTHER ==
[~2020-04-14] VITALS: Ht 182 cm; Wt 77.1 kg
--- NOTE | 2020-04-14 21:07 | ED GI ---
General Chief Complaint: Abdominal/GI Problems Stated Complaint: SUSPECTS UPPER GI BLEED Source of Information: Patient Exam Limitations: No Limitations History of Present Illness Date Seen by Provider: Apr 14, 2020 Time Seen by Provider: 21:05 Initial Comments To ER with reports of a suspected upper GI bleed. He has some mild lower a bdominal discomfort. He had a bowel movement this evening that was more difficult to get out than usual and it was more dark and tarry than usual. He states he has a history of an upper GI bleed. He does smoke about 1.5 to 2 packs of cigarettes per day. He drinks about 12 shots of alcohol per week. He denies any hematemesis nausea or vomiting. He is on an iron supplement Timing/Duration: 1-2 Days Severity/Quality: Moderate Location: Suprapubic Radiation: No Radiation Activities at Onset: None Associated Symptoms: Denies Symptoms Allergies and Home Medications Allergies Coded Allergies: No Known Drug Allergies (Unverified , 10/16/15) Home Medications Pantoprazole Sodium 40 Mg Granpkt.dr, 40 MG PO DAILY Prescribed by: CHAYO BABCOCK on 04/14/202143 Patient Home Medication List Home Medication List Reviewed: Yes Review of Systems Review of Systems Constitutional: see HPI; No chills, No fever EENTM: No Symptoms Reported Respiratory: No Symptoms Reported Cardiovascular: No Symptoms Reported Gastrointestinal: See HPI, Abdominal Pain Genitourinary: No Symptoms Reported Musculoskeletal: no symptoms reported Skin: no symptoms reported Psychiatric/Neurological: No Symptoms Reported Endocrine: No Symptoms Reported Hematologic/Lymphatic: No Symptoms Reported Past Pyvagyh-Fjjdax-Zjebba Hx Patient Social History Type Used: Cigarettes 2nd Hand Smoke Exposure: Yes Recent Hopitalizations: No Seasonal Allergies Seasonal Allergies: No Past Medical History Surgeries: No (none known) Respiratory: No Cardiac: No Neurological: No Reproductive Disorders: No Gastrointestinal: No Musculoskeletal: No Endocrine: Yes Diabetes, Non-Insulin dep HEENT: No Cancer: No Psychosocial: Yes PTSD Physical Exam Vital Signs Vital Signs - First Documented 04/14/20 21:04 Temp 36.8 Pulse 125 Resp 18 B/P (MAP) 128/86 (100) Pulse Ox 97 Capillary Refill : Height/Weight/BMI Height: 5'8" Weight: 200lbs. oz. 90.500808qq; 24.00 BMI Method:Stated General Appearance: WD/WN, no apparent distress Respiratory: no respiratory distress, no accessory muscle use Cardiovascular: no murmur, tachycardia Gastrointestinal: normal bowel sounds, non tender, soft Extremities: normal range of motion, non-tender Neurologic/Psychiatric: alert, normal mood/affect, oriented x 3 Skin: normal color, warm/dry Progress/Results/Core Measures Results/Orders Lab Results Laboratory Tests Test 04/14/20 21:07 Range/Units White Blood Count 11.9 H 4.3-11.0 10^3/uL Red Blood Count 4.08 L 4.30-5.52 10^6/uL Hemoglobin 12.1 L 13.3-17.7 g/dL Hematocrit 37 L 40-54 % Mean Corpuscular Volume 91 80-99 fL Mean Corpuscular Hemoglobin 30 25-34 pg Mean Corpuscular Hemoglobin Concent 33 32-36 g/dL Red Cell Distribution Width 13.2 10.0-14.5 % Platelet Count 303 130-400 10^3/uL Mean Platelet Volume 9.4 9.0-12.2 fL Immature Granulocyte % (Auto) 0 % Neutrophils (%) (Auto) 65 42-75 % Lymphocytes (%) (Auto) 28 12-44 % Monocytes (%) (Auto) 7 0-12 % Eosinophils (%) (Auto) 0 0-10 % Basophils (%) (Auto) 1 0-10 % Neutrophils # (Auto) 7.7 1.8-7.8 10^3/uL Lymphocytes # (Auto) 3.3 1.0-4.0 10^3/uL Monocytes # (Auto) 0.8 0.0-1.0 10^3/uL Eosinophils # (Auto) 0.0 0.0-0.3 10^3/uL Basophils # (Auto) 0.1 0.0-0.1 10^3/uL Immature Granulocyte # (Auto) 0.0 0.0-0.1 10^3/uL Sodium Level 139 135-145 MMOL/L Potassium Level 4.7 3.6-5.0 MMOL/L Chloride Level 106 98-107 MMOL/L Carbon Dioxide Level 21 21-32 MMOL/L Anion Gap 12 5-14 MMOL/L Blood Urea Nitrogen 19 H 7-18 MG/DL Creatinine 1.21 0.60-1.30 MG/DL Estimat Glomerular Filtration Rate > 60 BUN/Creatinine Ratio 16 Glucose Level 374 H 70-105 MG/DL Calcium Level 9.7 8.5-10.1 MG/DL Corrected Calcium 9.7 8.5-10.1 MG/DL Total Bilirubin 0.3 0.1-1.0 MG/DL Aspartate Amino Transf (AST/SGOT) 15 5-34 U/L Alanine Aminotransferase (ALT/SGPT) 23 0-55 U/L Alkaline Phosphatase 96 40-136 U/L Total Protein 8.0 6.4-8.2 GM/DL Albumin 4.0 3.2-4.5 GM/DL My Orders Orders - CHAYO BABCOCK APRN Cbc With Automated Diff (04/14/20 20:55) Fecal Occult Bedside (04/14/20 20:55) Ns Iv 1000 Ml (Sodium Chloride 0.9%) (04/14/20 21:15) Comprehensive Metabolic Panel (04/14/20 21:07) Pantoprazole Injection (Protonix Injecti (04/14/20 21:45) Vital Signs/I&O 04/14/20 21:04 Temp 36.8 Pulse 125 Resp 18 B/P (MAP) 128/86 (100) Pulse Ox 97 Departure Communication (Admissions) His bedside fecal occult blood test is completely negative 2122-HR down to 95, no intervention Impression Primary Impression: Dark stools Additional Impression: History of GI bleed Disposition: HOME, SELF-CARE Condition: Stable Departure-Patient Inst. Decision time for Depature: 21:36 Referrals: NO,LOCAL PHYSICIAN (PCP/Family) Primary Care Physician Patient Instructions: No Instuctions Given Add. Discharge Instructions: Return to ER for any vomiting blood, lightheadedness, other worsening or concerning symptoms. Follow-up with your doctor later this week for recheck. All discharge instructions reviewed with patient and/or family. Voiced understanding. Scripts Pantoprazole Sodium (Protonix) 40 Mg 40 MG PO DAILY, #14 TAB Prov: CHAYO BABCOCK APRN 04/14/20 CHAYO BABCOCK APRN Apr 14, 2020 21:07
[2020-04-14 21:15] VITALS: BP 121/87
[2020-04-14] MEDS ORDERED: NS IV 1000 ML 1,000 ML IV SCH (21:15)
[2020-04-14 21:25] LABS: BASOPHILS # (AUTO) 0.1 10^3/uL (0.0-0.1); BASOPHILS % (AUTO) 1 % (0-10); EOSINOPHILS % (AUTO) 0 % (0-10); HEMATOCRIT 37 % (40-54); HEMOGLOBIN 12.1 g/dL (13.3-17.7); LYMPHOCYTES # (AUTO) 3.3 10^3/uL (1.0-4.0); LYMPHOCYTES % (AUTO) 28 % (12-44); MEAN CORPUSCULAR HEMOGLOBIN 30 pg (25-34); MEAN CORPUSCULAR HGB CONC 33 g/dL (32-36); MEAN CORPUSCULAR VOLUME 91 fL (80-99); MEAN PLATELET VOLUME 9.4 fL (9.0-12.2); MONOCYTES # (AUTO) 0.8 10^3/uL (0.0-1.0); MONOCYTES % (AUTO) 7 % (0-12); NEUTROPHILS # (AUTO) 7.7 10^3/uL (1.8-7.8); NEUTROPHILS % (AUTO) 65 % (42-75); PLATELET COUNT 303 10^3/uL (130-400); WHITE BLOOD COUNT 11.9 10^3/uL (4.3-11.0)
[2020-04-14 21:29] LABS: ALANINE AMINOTRANSFERASE 23 U/L (0-55); ALKALINE PHOSPHATASE 96 U/L (40-136); BILIRUBIN,TOTAL 0.3 MG/DL (0.1-1.0); BUN/CREATININE RATIO 16; CALCIUM 9.7 MG/DL (8.5-10.1); CARBON DIOXIDE 21 MMOL/L (21-32); CHLORIDE 106 MMOL/L (98-107); CREATININE SERUM 1.21 MG/DL (0.60-1.30); GFR ESTIMATED > 60; GLUCOSE 374 MG/DL (70-105); POTASSIUM 4.7 MMOL/L (3.6-5.0); SODIUM 139 MMOL/L (135-145)
[2020-04-14] MEDS ORDERED: PANT40SU PO (21:44)
[2020-04-14] MEDS ORDERED: PANTOPRAZOLE 40 MG (PROTONIX) VIAL IV ONE (21:45)
== END 2020-04-14 21:15 | disposition home or self-care (01) ==
LOC: EDUNIT# 20:52 → ER 20:55
DX: K92.1 Melena (principal); E11.9 Type 2 diabetes mellitus without complications; F17.210 Nicotine dependence, cigarettes, uncomplicated; Z87.19 Personal history of other diseases of the digestive system
CPT/HCPCS: 36415; 80053; 82274; 85025

== ENCOUNTER 2020-07-27 18:37 | Emergency (ER) | payer OTHER ==
[~2020-07-27] VITALS: Ht 182 cm; Wt 77.1 kg
[~2020-07-27 18:37] MED LIST changes: +PANT40SU PO
[2020-07-27] MEDS ORDERED: TRM50T PO (19:13)
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
--- NOTE | 2020-07-27 19:54 | Diagnostic Imaging Report ---
EXAMINATION: Right shoulder at 7:20 p.m. INDICATION: Shoulder pain. Three views were obtained. There are no prior studies available for comparison. There is no fracture identified. However the distal right clavicle has somewhat irregular appearance. This could be a sequela of prior surgery. Correlation with the patient's surgical history is recommended. There is also widening of the acromioclavicular joint. 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 However if this is chronic or acute is not certain. The soft tissues are unremarkable. IMPRESSION: 1. There is no acute bony abnormality noted. 2. There is deformity of the distal right clavicle and widening of the acromioclavicular joint. 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 However this may well be chronic in nature. Clinical follow up is recommended. Dictated by: Dictated on workstation # [id number]
[2020-07-27 19:55] VITALS: BP 123/80
== END 2020-07-27 19:54 | disposition home or self-care (01) ==
LOC: EDUNIT# 18:37 → ER 18:39
DX: M25.511 Pain in right shoulder (principal); J45.909 Unspecified asthma, uncomplicated; E11.9 Type 2 diabetes mellitus without complications; F17.210 Nicotine dependence, cigarettes, uncomplicated; Z87.39 Personal history of other diseases of the musculoskeletal system and connective tissue; Y04.8XXA Assault by other bodily force, initial encounter
CPT/HCPCS: 73030

== ENCOUNTER 2021-08-27 23:29 | Emergency (ER) | payer OTHER ==
[~2021-08-27] VITALS: Ht 182.8 cm; Wt 80.5 kg
[~2021-08-27 23:29] MED LIST changes: +TRM50T PO
--- NOTE | 2021-08-28 00:22 | ED Integumentary General ---
General Chief Complaint: Skin/Wound Problems Stated Complaint: L FOOT HOLE/WOUND Nursing Triage Note: PT AMBULATORY INTO ER WITH FAMILY WITH COMPLAINT OF OPEN WOUND TO LEFT 4TH TOE X3 YEARS. PT STATES THAT HIS DOG SAT ON HIS FOOT TONIGHT AND HIS FOOT HAD PAIN, BUT THAT PARTICULAR TOE DID NOT SO HE BECAME CONCERNED. 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 PT STATES THAT ITS FINE THOUGH HE ALWAYS STERILIZES IT BEFORE DOING SO. Source: patient, family Exam Limitations: no limitations History of Present Illness Date Seen by Provider: Aug 28, 2021 Time Seen by Provider: 00:05 Initial Comments Patient to the ER by private conveyance with significant other and chief complaint that he had a wound for the past 6 weeks on his left foot fourth toe that he was probing with a metal part he uses to clean guns and felt the bone as well as it went all the way through to the bottom of his toe. Its been draining purulent discharge. He said his dog sat on his foot which hurt his foot earlier today but he was concerned because he could not feel anything in his foot. He went to make sure he did not have gangrene. There is no increasing redness fevers nausea vomiting diarrhea. He does have diabetes. He also has PTSD. He has not been on antibiotics recently. He has not followed up with wound care recently. He follows with the [place] and [place] for primary care. Allergies and Home Medications Allergies Coded Allergies: No Known Drug Allergies (Unverified , 10/16/15) Patient Home Medication List Home Medication List Reviewed: Yes Pantoprazole Sodium (Protonix) 40 Mg Granpkt.dr 40 MG PO DAILY Prescribed by: CHAYO BABCOCK on 04/14/202143 Tramadol HCl (Tramadol HCl) 50 Mg Tablet, 50 MG PO Q6H PRN for PAIN Prescribed by: KANCHAN POLK on 07/27/201913 [Mental Health Pill] , (Reported) Entered as Reported by: MARTI ALMONTE on 10/16/15 122 [Metformin] , (Reported) Entered as Reported by: MARTI ALMONTE on 10/16/15 1220 Review of Systems Review of Systems Constitutional: No chills, No diaphoresis EENTM: No ear discharge, No hearing loss, No ear pain Respiratory: No cough, No dyspnea on exertion Cardiovascular: No chest pain, No edema Gastrointestinal: No abdominal pain, No nausea, No vomiting Genitourinary: No discharge, No dysuria Musculoskeletal: No back pain, No joint pain Psychiatric/Neurological: Denies Anxiety, Denies Depressed All Other Systems Reviewed Negative Unless Noted: Yes Past Lyqjplr-Qibebw-Ialxss Hx Patient Social History Tobacco Use?: Yes Tobacco type used: Cigarettes Smoking Status: Current Everyday Smoker Use of E-Cig and/or Vaping dev: No Substance use?: No Alcohol Use?: Yes Alcohol type: Beer, Hard Liquor Alcohol Frequency: Daily Pt feels they are or have been: No Immunizations Up To Date Influenza Vaccine Up-to-Date: No; Not Current Seasonal Allergies Seasonal Allergies: No Past Medical History Surgeries: Yes (HERNIA REPAIR, DENTAL, T-TUBES, RT COLLAR BONE) Orthopedic Respiratory: Yes Asthma Cardiac: No Neurological: No Reproductive Disorders: No Genitourinary: No Gastrointestinal: No Musculoskeletal: Yes Chronic Back Pain Endocrine: Yes Diabetes, Insulin dep, Diabetes, Non-Insulin dep HEENT: No Tinnitis Cancer: No Psychosocial: Yes Anxiety, PTSD, Depression Physical Exam Vital Signs Vital Signs - First Documented 08/27/21 23:54 Temp 36.1 Pulse 104 Resp 20 B/P (MAP) 141/80 (100) Pulse Ox 98 O2 Delivery Room Air Capillary Refill : Less Than 3 Seconds General Appearance: WD/WN, no apparent distress HEENT: normal ENT inspection, pharynx normal Neck: full range of motion, normal inspection Cardiovascular: normal peripheral pulses, regular rate, rhythm Respiratory: no respiratory distress, no accessory muscle use Extremities: non-tender, other (Dried excoriations and scabs in patches over the foot which she states are chronic. Fourth toe has an open tunneling unstageable wound with capillary refill intact and no significant erythema. Thin white serous discharge with a faint yeasty malodor.) Neurologic/Psychiatric: alert, normal mood/affect, oriented x 3 Progress/Results/Core Measures Results/Orders Vital Signs/I&O 08/27/21 23:54 Temp 36.1 Pulse 104 Resp 20 B/P (MAP) 141/80 (100) Pulse Ox 98 O2 Delivery Room Air Blood Pressure Mean: 100 Progress Progress Note : Time: 00:19 Progress Note We will put him on some Keflex to prevent infection and having follow-up with wound care. Patient is okay with this plan. Dressing change instructions given. Departure Impression Primary Impression: Diabetic ulcer of toe Qualified Codes: E11.621 - Type 2 diabetes mellitus with foot ulcer; L97.526 - Non-pressure chronic ulcer of other part of left foot with bone involvement without evidence of necrosis Disposition: HOME, SELF-CARE Condition: Stable Departure-Patient Inst. Decision time for Depature: 00:20 Referrals: NO,LOCAL PHYSICIAN (PCP) Primary Care Physician MASON CHRISTIANSON MD Patient Instructions: Diabetic Foot Ulcer (DC) Add. Discharge Instructions: Call wound care @ Sunday to make a follow-up appointment within the next week for examination and management of your left foot fourth toe ulcer. Keflex 500 mg 3 times a day to prevent cellulitis. Probiotics 1 capsule twice a day not to be taken within 30 minutes of the Keflex/antibiotic. This will prevent diarrhea associated with antibiotics. Follow-up with wound care or return to the ER sooner after hours if you are experiencing redness going up your leg, fever above 100.3 F or intractable vomiting. All discharge instructions reviewed with patient and/or family. Voiced understanding. Copy Copies To 1: MASON CHRISTIANSON MD, TITUS J Aug 28, 2021 00:22
[2021-08-28 00:28] VITALS: BP 137/81
== END 2021-08-28 00:28 | disposition home or self-care (01) ==
LOC: EDUNIT# 23:29 → ER 23:32
DX: E11.621 Type 2 diabetes mellitus with foot ulcer (principal); L97.529 Non-pressure chronic ulcer of other part of left foot with unspecified severity; F17.210 Nicotine dependence, cigarettes, uncomplicated; Z79.4 Long term (current) use of insulin
CPT/HCPCS: 99281

== ENCOUNTER 2021-08-30 18:27 | Inpatient (IN) | payer OTHER ==
[~2021-08-30] VITALS: Ht 182.9 cm; Wt 76.9 kg
[2021-08-30 19:32] LABS: BASOPHILS # (AUTO) 0.1 10^3/uL (0.0-0.1); BASOPHILS % (AUTO) 1 % (0-10); EOSINOPHILS % (AUTO) 0 % (0-10); HEMATOCRIT 35 % (40-54); HEMOGLOBIN 11.1 g/dL (13.3-17.7); LYMPHOCYTES # (AUTO) 3.6 10^3/uL (1.0-4.0); LYMPHOCYTES % (AUTO) 28 % (12-44); MEAN CORPUSCULAR HEMOGLOBIN 28 pg (25-34); MEAN CORPUSCULAR HGB CONC 32 g/dL (32-36); MEAN CORPUSCULAR VOLUME 87 fL (80-99); MEAN PLATELET VOLUME 8.7 fL (9.0-12.2); MONOCYTES # (AUTO) 0.7 10^3/uL (0.0-1.0); MONOCYTES % (AUTO) 5 % (0-12); NEUTROPHILS # (AUTO) 8.3 10^3/uL (1.8-7.8); NEUTROPHILS % (AUTO) 65 % (42-75); PLATELET COUNT 325 10^3/uL (130-400); WHITE BLOOD COUNT 12.7 10^3/uL (4.3-11.0)
[2021-08-30 19:44] LABS: INR 0.8 (0.8-1.4); PROTHROMBIN TIME PATIENT 11.9 SEC (12.2-14.7)
--- NOTE | 2021-08-30 19:51 | ED Integumentary General ---
General Chief Complaint: Skin/Wound Problems Stated Complaint: TOE INJURY Nursing Triage Note: ARRIVES AMBULITORY TO TRIAGE ROOM, PATIENT PRESENTS TO ED WITH C/O "mY TOE BONE FELL OUT OF MY FOOT" PATIENT PLACES A MED BOTTLE WITH A SMALL SOLID OBJECT HE STATES CAM OUT OF HIS FOOT. TAKEN TO FT3 AND PLACED IN BED. Source: patient Exam Limitations: no limitations (REA NEWTON APRN) History of Present Illness Date Seen by Provider: Aug 30, 2021 Time Seen by Provider: 19:44 Initial Comments This is a 51-year-old male who presented to the ER with complaints of having a piece of bone come out of wound on his left 4th toe. States that he was evaluated and treated at this emergency department yesterday for complaints of wound that he has had for the past month and a half on his left foot. According to notes yesterday he was probing his foot with a metal part to use to clean guns and felt the bone as well as all the way through the bottom of his toe. States that he has been having purulent drainage, increasing redness, and with this piece of bone that fell out he would like his foot reexamined. He does have significant swelling, erythema, odor, and drainage to his left fourth toe. He also has dried tissue on the dorsum of his left foot and his medial left ankle. He does have diabetes. He also has PTSD. He has not been on antibiotics recently. He follows with the DC and Mateo Denis for primary care. He is a daily alcohol drinker with beer and hard liquor. Denies fever, chills, cough, shortness of breath, nausea, vomiting, abdominal pain. (REA NEWTON APRN) Allergies and Home Medications Allergies Coded Allergies: No Known Drug Allergies (Unverified , 10/16/15) Patient Home Medication List Home Medication List Reviewed: Yes (REA NEWTON APRN) Pantoprazole Sodium (Protonix) 40 Mg , 40 MG PO DAILY Prescribed by: CHAYO BABCOCK on 04/14/202143 Tramadol HCl (Tramadol HCl) 50 Mg Tablet, 50 MG PO Q6H PRN for PAIN Prescribed by: KANCHAN POLK on 07/27/20 191 [Mental Health Pill] , (Reported) Entered as Reported by: MARTI ALMONTE on 10/16/15 1220 [Metformin] , (Reported) Entered as Reported by: MARTI Crowe GAGE on 10/16/15 1220 Review of Systems Review of Systems Constitutional: see HPI EENTM: no symptoms reported Respiratory: no symptoms reported Cardiovascular: no symptoms reported Gastrointestinal: no symptoms reported Genitourinary: no symptoms reported Musculoskeletal: see HPI Skin: see HPI Psychiatric/Neurological: No Symptoms Reported Endocrine: No Symptoms Reported Hematologic/Lymphatic: No Symptoms Reported (REA NEWTON APRN) Past Jnxfphh-Kypxng-Ciihpa Hx Patient Social History Tobacco Use?: Yes Tobacco type used: Cigarettes Smoking Status: Current Everyday Smoker Use of E-Cig and/or Vaping dev: No Substance use?: No Alcohol Use?: Yes Alcohol type: Hard Liquor Alcohol Frequency: Daily Pt feels they are or have been: No (REA NEWTON APRN) Immunizations Up To Date First/Initial COVID19 Vaccinat: DECLINED (REA NEWTON APRN) Seasonal Allergies Seasonal Allergies: No (REA NEWTON APRN) Past Medical History Surgeries: Yes (HERNIA REPAIR, DENTAL, T-TUBES, RT COLLAR BONE) Orthopedic Respiratory: Yes Asthma Cardiac: No Neurological: No Reproductive Disorders: No Genitourinary: No Gastrointestinal: No Musculoskeletal: Yes Chronic Back Pain Endocrine: Yes Diabetes, Insulin dep, Diabetes, Non-Insulin dep HEENT: No Tinnitis Cancer: No Psychosocial: Yes Anxiety, PTSD, Depression (REA NEWTON APRN) Physical Exam Vital Signs Vital Signs - First Documented 08/30/21 18:34 Temp 36.2 Pulse 127 Resp 18 B/P (MAP) 135/81 (99) Pulse Ox 98 (JUAN MANUEL,RADHA K DO) Vital Signs Capillary Refill : (REA NEWTON [facility]) General Appearance: WD/WN, no apparent distress, other (Dirty) HEENT: PERRL/EOMI, normal ENT inspection, pharynx normal Neck: full range of motion, normal inspection Cardiovascular: regular rate, rhythm, no murmur Respiratory: lungs clear, normal breath sounds, no respiratory distress, no accessory muscle use Gastrointestinal: normal bowel sounds, non tender, soft Extremities: normal range of motion, non-tender, other (Nontender to touch. He does have dried excoriated scabs with black eschar over the dorsum of his foot and his right medial ankle. Patient reports this is a chronic issue. He does have a open ulcer of his left fourth toe, significant erythema, swelling and purulent drainage. He has delayed capillary refill with his fourth left toe. 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, no motor/sensory deficits, alert, normal mood/affect, oriented x 3 Skin: normal color, warm/dry (REA NEWTON APRN) Progress/Results/Core Measures Results/Orders Lab Results Laboratory Tests Test 08/30/21 19:29 Range/Units White Blood Count 12.7 H 4.3-11.0 10^3/uL Red Blood Count 3.99 L 4.30-5.52 10^6/uL Hemoglobin 11.1 L 13.3-17.7 g/dL Hematocrit 35 L 40-54 % Mean Corpuscular Volume 87 80-99 fL Mean Corpuscular Hemoglobin 28 25-34 pg Mean Corpuscular Hemoglobin Concent 32 32-36 g/dL Red Cell Distribution Width 13.5 10.0-14.5 % Platelet Count 325 130-400 10^3/uL Mean Platelet Volume 8.7 L 9.0-12.2 fL Immature Granulocyte % (Auto) 0 % Neutrophils (%) (Auto) 65 42-75 % Lymphocytes (%) (Auto) 28 12-44 % Monocytes (%) (Auto) 5 0-12 % Eosinophils (%) (Auto) 0 0-10 % Basophils (%) (Auto) 1 0-10 % Neutrophils # (Auto) 8.3 H 1.8-7.8 10^3/uL Lymphocytes # (Auto) 3.6 1.0-4.0 10^3/uL Monocytes # (Auto) 0.7 0.0-1.0 10^3/uL Eosinophils # (Auto) 0.0 0.0-0.3 10^3/uL Basophils # (Auto) 0.1 0.0-0.1 10^3/uL Immature Granulocyte # (Auto) 0.1 0.0-0.1 10^3/uL Prothrombin Time 11.9 L 12.2-14.7 SEC INR Comment 0.8 0.8-1.4 Activated Partial Thromboplast Time 29 24-35 SEC Sodium Level 136 135-145 MMOL/L Potassium Level 4.8 3.6-5.0 MMOL/L Chloride Level 100 98-107 MMOL/L Carbon Dioxide Level 24 21-32 MMOL/L Anion Gap 12 5-14 MMOL/L Blood Urea Nitrogen 14 7-18 MG/DL Creatinine 1.24 0.60-1.30 MG/DL Estimat Glomerular Filtration Rate 71 BUN/Creatinine Ratio 11 Glucose Level 338 H 70-105 MG/DL Lactic Acid Level 1.47 0.50-2.00 MMOL/L Calcium Level 9.8 8.5-10.1 MG/DL Corrected Calcium 10.2 H 8.5-10.1 MG/DL Total Bilirubin 0.2 0.1-1.0 MG/DL Aspartate Amino Transf (AST/SGOT) 11 5-34 U/L Alanine Aminotransferase (ALT/SGPT) 12 0-55 U/L Alkaline Phosphatase 90 40-136 U/L Total Protein 7.3 6.4-8.2 GM/DL Albumin 3.5 3.2-4.5 GM/DL (JUAN MANUEL,RADHA K DO) Vital Signs/I&O 08/30/21 18:34 Temp 36.2 Pulse 127 Resp 18 B/P (MAP) 135/81 (99) Pulse Ox 98 (JUAN MANUEL,RADHA K DO) Blood Pressure Mean: 99 Progress Progress Note : Progress Note Patient examined and in no acute distress. Will initiate sepsis work-up as he is a known diabetic with purulent draining diabetic ulcer on his foot. His vital signs are stable at this time. While in room he was taking his finger and flopping his left fourth toe around, instructed to cease touching as this just increases his risk for worsening infection. Initiated orders for Zosyn 4.5gm and Vancomycin 1gm IV. Denies pain at this time. Labs and imaging reviewed, lactic within normal limits, slight elevation in white count. Imaging does show missing fragment of his left fourth proximal phalanx. Reviewed findings with Dr. Roe, recommended admission as he will needTatian of his left fourth toe. Reviewed plan with patient and he is agreeable with this plan. Discussed case with Dr. Ceballos who is hospitalist on- call, she accepted inpatient admission. (REA NEWTON [facility]) Diagnostic Imaging Diagonstic Imaging: Xray Comments [facility] [place], [place] NAME: KIRBY BRIGGS [facility] REC#: [id number] PT STATUS: ADM IN : 1970 PHYSICIAN: REA NEWTON APRN ADMIT DATE: 08/30/21 Signed Date of Exam:08/30/21 CHEST 1 VIEW, AP/PA ONLY INDICATION: Sepsis workup. EXAMINATION: Chest 08/30/2021 FINDINGS: The cardiomediastinal silhouette is unremarkable. The pulmonary vasculature is within normal limits. The lungs and pleural spaces are clear. IMPRESSION: No evidence of an acute cardiopulmonary process. Dictated by: Dictated on workstation # [id number] Dict: 08/30/211954 Trans: 08/30/212255 [facility] [id number] Interpreted by: MONA THOMAS MD Electronically signed by: MONA THOMAS MD 08/30/212255 Diagonstic Imaging: Xray Comments [facility], [place] NAME: KIRBY BRIGGS [facility] REC#: [id number] PT STATUS: ADM IN : 1970 PHYSICIAN: REA NEWTON APRN ADMIT DATE: 08/30/21 Signed Date of Exam:08/30/21 FOOT, LEFT, 3 VIEWS INDICATION: Injury 4th toe. EXAMINATION: Left foot 08/30/2021 FINDINGS: 3 views of the foot. There is a comminuted displaced fracture of the distal aspect of the 4th proximal phalanx with diastasis measuring almost 5 mm. There is diffuse surrounding soft tissue swelling. The remaining osseous structures appear intact. IMPRESSION: 1. Fourth proximal phalanx fracture, as described. Dictated by: Dictated on workstation # [id number] Dict: 08/30/211955 Trans: 08/30/212254 [facility] [id number] Interpreted by: MONA THOMAS MD Electronically signed by: MONA THOMAS MD 08/30/212254 (REA NEWTON APRN) Departure Communication (Admissions) Time/Spoke to Admitting Phy: 20:38 Dr. Ceballos Time/Spoke to Consulting Phy: 20:01 Dr. Roe (REA NEWTON APRN) Impression Primary Impression: Diabetic toe ulcer Disposition: ADMITTED INPATIENT Condition: Stable Admissions Decision to Admit Reason: Admit from ER (General) Decision to Admit/Date: Aug 30, 2021 Time/Decision to Admit Time: 19:45 (REA NEWTON APRN) Departure-Patient Inst. Referrals: NO,LOCAL PHYSICIAN (PCP/Family) Primary Care Physician ATTENDING PHYSICIAN NOTE: I WAS PHYSICALLY PRESENT ER PHYSICIAN, BUT I WAS NOT INVOLVED IN ANY DECISION MAKING OR ANY CARE OF THIS PATIENT. (RADHA ZAMBRANO DO) REA NEWTON APRN Aug 30, 2021 19:50 RADHA ZAMBRANO DO Aug 31, 2021 05:26
--- NOTE | 2021-08-30 19:58 | Diagnostic Imaging Report ---
INDICATION: Sepsis workup. EXAMINATION: Chest 08/30/2021 FINDINGS: The cardiomediastinal silhouette is unremarkable. The pulmonary vasculature is within normal limits. The lungs and pleural spaces are clear. IMPRESSION: No evidence of an acute cardiopulmonary process. Dictated by: Dictated on workstation # [id number]
[2021-08-30] MEDS ORDERED: PIPERACILLIN SODIUM/TAZOBACTAM 4.5 GM in NS (IVPB) 100 ML IV ONE ×2 (20:00→20:45)
[2021-08-30] MEDS ORDERED: NS IV 1000 ML 1,000 ML IV SCH (20:00)
[2021-08-30] MEDS ORDERED: VANCOMYCIN INJECTION 1,000 MG in NS (IVPB) 250 ML IV ONE ×2 (20:00→20:45)
--- NOTE | 2021-08-30 20:05 | Diagnostic Imaging Report ---
INDICATION: Injury 4th toe. EXAMINATION: Left foot 08/30/2021 FINDINGS: 3 views of the foot. There is a comminuted displaced fracture of the distal aspect of the 4th proximal phalanx with diastasis measuring almost 5 mm. There is diffuse surrounding soft tissue swelling. The remaining osseous structures appear intact. IMPRESSION: 1. Fourth proximal phalanx fracture, as described. Dictated by: Dictated on workstation # [id number]
[2021-08-30 20:25] LABS: ALBUMIN 3.5 GM/DL (3.2-4.5); BILIRUBIN,TOTAL 0.2 MG/DL (0.1-1.0); CALCIUM 9.8 MG/DL (8.5-10.1); CREATININE SERUM 1.24 MG/DL (0.60-1.30); POTASSIUM 4.8 MMOL/L (3.6-5.0); TOTAL PROTEIN 7.3 GM/DL (6.4-8.2)
[2021-08-30] MEDS ORDERED: NS IV 1000 ML 1,000 ML ONE (20:43)
[2021-08-30 21:35] VITALS: BP 135/76
[2021-08-30] MEDS ORDERED: CALCIUM CARBONATE 500 MG (TUMS) TAB.CHEW PO PRN (22:00)
[2021-08-30] MEDS ORDERED: BISACODYL 10 MG SUPP (DULCOLAX) PR PRN (22:00)
[2021-08-30] MEDS ORDERED: diphenhydrAMINE 25 MG TAB (BENADRYL) PO PRN (22:00)
[2021-08-30] MEDS ORDERED: MELATONIN 3 MG TABLET PO PRN (22:00)
[2021-08-30] MEDS ORDERED: MILK OF MAGNESIA 400 MG/5 ML 30 ML UDC PO PRN (22:00)
[2021-08-30] MEDS ORDERED: LACTULOSE SYRUP 10GM/15ML (ENULOSE) 30ML UDC PO PRN (22:00)
[2021-08-30] MEDS ORDERED: ONDANSETRON 4 MG/2 ML (SDV) Z0FRAN IV PRN (22:00)
[2021-08-30] MEDS ORDERED: SENNA W/DOCUSATE (SENOKOT S) TABLET PO PRN (22:00)
[2021-08-30] MEDS ORDERED: ONDANSETRON 4 MG (ZOFRAN) ORAL DISSOLVE TAB PO PRN (22:00)
[2021-08-30] MEDS ORDERED: LORazepam 1 MG (ATIVAN) TAB PO PRN (22:00)
[2021-08-30] MEDS ORDERED: ACETAMINOPHEN 325 MG TABLET PO PRN (22:00)
[2021-08-30] MEDS ORDERED: LORazepam INJ 2 MG/ML (ATIVAN) VIAL IM/IV PRN (22:00)
[2021-08-30] MEDS ORDERED: ANTACID SUSP 30 ML UDC (MYLANTA) PO PRN ×2 (22:00)
[2021-08-30] MEDS ORDERED: D5 1/2 NS 1000 ML IV SOLUTION 1,000 ML IV PRN (22:00)
[2021-08-30] MEDS ORDERED: 1/2 NS IV SOLUTION 1,000 ML IV PRN (22:00)
[2021-08-30] MEDS ORDERED: polyethylene glycoL POWDER 17 GM (MIRALAX) PACK PO PRN (22:00)
[2021-08-30] MEDS ORDERED: VANCOMYCIN INJECTION 0.1 MG in NS (IVPB) 250 ML IV SCH (22:00)
[2021-08-30] MEDS ORDERED: VANCOMYCIN 500 MG/NS 100 ML IV ONE ×2 (22:15)
[2021-08-30 22:27] VITALS: BP 135/76
[2021-08-30] MEDS ORDERED: RT-ALBUTEROL SULF 2.5 MG/3 ML PRE-MIX VIAL INH PRN (22:45)
[2021-08-30 23:15] VITALS: BP 143/75
[2021-08-31] VITALS (12 sets, daily range): BP systolic 81–141; BP diastolic 49–85
[2021-08-31] MEDS: NS IV 1000 ML 1,000 ML IV SCH ×2 (00:03→12:32)
[2021-08-31] MEDS: ENOXAPARIN 40 MG/0.4 ML (LOVENOX) SYR SC SCH ×2 (00:05→20:53)
[2021-08-31] MEDS: PIPERACILLIN SODIUM/TAZOBACTAM 4.5 GM in NS (IVPB) 100 ML IV SCH ×3 (02:55→20:45)
[2021-08-31 05:47] LABS: BASOPHILS # (AUTO) 0.1 10^3/uL (0.0-0.1); BASOPHILS % (AUTO) 1 % (0-10); EOSINOPHILS % (AUTO) 0 % (0-10); HEMATOCRIT 33 % (40-54); HEMOGLOBIN 10.5 g/dL (13.3-17.7); LYMPHOCYTES # (AUTO) 3.9 10^3/uL (1.0-4.0); LYMPHOCYTES % (AUTO) 36 % (12-44); MEAN CORPUSCULAR HEMOGLOBIN 28 pg (25-34); MEAN CORPUSCULAR HGB CONC 32 g/dL (32-36); MEAN CORPUSCULAR VOLUME 88 fL (80-99); MEAN PLATELET VOLUME 9.1 fL (9.0-12.2); MONOCYTES # (AUTO) 0.7 10^3/uL (0.0-1.0); MONOCYTES % (AUTO) 7 % (0-12); NEUTROPHILS % (AUTO) 56 % (42-75); PLATELET COUNT 301 10^3/uL (130-400); WHITE BLOOD COUNT 10.8 10^3/uL (4.3-11.0)
[2021-08-31] MEDS: inSUlin ASPART (NovoLOG) 1 UNIT/0.01 ML (CHARGE PER UNIT) SC SCH ×6 (05:52→20:52)
[2021-08-31] MEDS: THIAMINE 100 MG (VITAMIN B-1) TAB PO SCH (05:53)
[2021-08-31] MEDS: MULTIVIT W/MINERALS TAB (THERAGRAN M) PO SCH (05:53)
[2021-08-31 06:10] LABS: ALBUMIN 3.2 GM/DL (3.2-4.5); INR 0.9 (0.8-1.4); PROTHROMBIN TIME PATIENT 12.2 SEC (12.2-14.7)
[2021-08-31 06:11] LABS: POTASSIUM 4.5 MMOL/L (3.6-5.0)
[2021-08-31 06:12] LABS: CALCIUM 9.4 MG/DL (8.5-10.1)
[2021-08-31 06:13] LABS: TOTAL PROTEIN 6.9 GM/DL (6.4-8.2)
[2021-08-31 06:15] LABS: BILIRUBIN,TOTAL 0.2 MG/DL (0.1-1.0)
[2021-08-31 06:16] LABS: CREATININE SERUM 1.17 MG/DL (0.60-1.30)
--- NOTE | 2021-08-31 07:16 | Consultation - Surgery ---
History of Present Illness History of Present Illness Patient Consulted On(mani/time) 08/31/21 07:15 Date Seen by Provider: Aug 31, 2021 Time Seen by Provider: 07:15 History of Present Illness Consult for fourth toe wound. Patient is a 51 year old male who states had had issues with skin to feet for a couple years. Has been improving. Last 1-2 weeks having open wound to left 4th toe. Drainage and foul smelling. X ray showing fracture and soft tissue changes. Not having much pain but decreased sensation due to his diabetes. Right foot has similar changes to skin and right fourth toe has drainage and is squishy. Blood sugars not controlled. Denies n/v fever sweats chills shortness of breath or chest pain at this time. Allergies and Home Medications Allergies Coded Allergies: No Known Drug Allergies (Unverified , 10/16/15) Patient Home Medication List Home Medication List Reviewed: Yes Pantoprazole Sodium (Protonix) 40 Mg Granpkt.dr, 40 MG PO DAILY Prescribed by: CHAYO BABCOCK on 04/14/202143 Tramadol HCl (Tramadol HCl) 50 Mg Tablet, 50 MG PO Q6H PRN for PAIN Prescribed by: KANCHAN POLK on 07/27/20 1914 [Mental Health Pill] , (Reported) Entered as Reported by: MARTI ALMONTE on 10/16/15 1220 [Metformin] , (Reported) Entered as Reported by: MARTI ALMONTE on 10/16/15 1220 Past Bysmtvs-Jyyifv-Zmupfp Hx Patient Social History Smoking Status: Current Everyday Smoker Type Used: Cigarettes 2nd Hand Smoke Exposure: Yes Recent Hopitalizations: No Alcohol Use?: Yes Have you traveled recently?: No Seasonal Allergies Seasonal Allergies: No Surgeries History of Surgeries: Yes (HERNIA REPAIR, DENTAL, T-TUBES, RT COLLAR BONE) Surgeries: Orthopedic Respiratory History of Respiratory Disorde: Yes Respiratory Disorders: Asthma Cardiovascular History of Cardiac Disorders: No Neurological History of Neurological Disord: No Reproductive System Hx Reproductive Disorders: No Genitourinary History of Genitourinary Disor: No Gastrointestinal History of Gastrointestinal Di: No Musculoskeletal History of Musculoskeletal Dis: Yes Musculoskeletal Disorders: Chronic Back Pain Endocrine History of Endocrine Disorders: Yes Endocrine Disorders: Diabetes, Insulin dep, Diabetes, Non-Insulin dep HEENT History of HEENT Disorders: No HEENT Disorders: Tinnitis Cancer History of Cancer: No Psychosocial History of Psychiatric Problem: Yes Behavioral Health Disorders: Anxiety, PTSD, Depression Reviewed Nursing Assessment Reviewed/Agree w Nursing PMH: Yes Family Medical History Significant Family History: No Pertinent Family Hx Review of Systems-General Constitutional: No chills, No diaphoresis EENTM: No blurred vision, No double vision Respiratory: No cough, No dyspnea on exertion Cardiovascular: No chest pain, No palpitations Gastrointestinal: No abdominal pain, No nausea, No vomiting Genitourinary: No decreased output, No discharge Musculoskeletal: No back pain; other (feet wounds) Skin: change in color, other (skin wounds) Psychiatric/Neurological: Denies Anxiety, Denies Depressed, Denies Emotional Problems All Other Systems Reviewed Negative Unless Noted: Yes (Negative excepted noted.) Physical Exam-General Problems Physical Exam Vital Signs Vital Signs - First Documented 08/30/21 18:34 Temp 36.2 Pulse 127 Resp 18 B/P (MAP) 135/81 (99) Pulse Ox 98 Capillary Refill : General Appearance: WD/WN, no apparent distress HEENT: PERRL/EOMI, normal ENT inspection Neck: non-tender, supple Respiratory: chest non-tender, no respiratory distress, no accessory muscle use Cardiovascular: regular rate, rhythm, no JVD Gastrointestinal: non tender, soft Rectal: deferred Back: no CVA tenderness, no vertebral tenderness Extremities: non-tender, other (right and left fourth toes cellulitis and abscessed, open wound left 4th toe ) Neurologic/Psychiatric: alert, normal mood/affect, oriented x 3, other (decreased sensation lower extremities) Skin: warm/dry, other (erythema at b/l 4th toes with drainage. skin changes dry crusted scab multiple areas b/l feet/legs appears to have surrounding scar around some areas indicating healing these areas appear to be superficial) Lymphatic: no adenopathy Data Review Labs Laboratory Tests 08/30/21 19:29: White Blood Count 12.7H, Red Blood Count 3.99L, Hemoglobin 11.1L, Hematocrit 35L , Mean Corpuscular Volume 87, Mean Corpuscular Hemoglobin 28, Mean Corpuscular Hemoglobin Concent 32, Red Cell Distribution Width 13.5, Platelet Count 325, Mean Platelet Volume 8.7L, Immature Granulocyte % (Auto) 0, Neutrophils (%) (Auto) 65, Lymphocytes (%) (Auto) 28, Monocytes (%) (Auto) 5, Eosinophils (%) (Auto) 0, Basophils (%) (Auto) 1, Neutrophils # (Auto) 8.3H, Lymphocytes # (Auto) 3.6, Monocytes # (Auto) 0.7, Eosinophils # (Auto) 0.0, Basophils # (Auto) 0.1, Immature Granulocyte # (Auto) 0.1, Prothrombin Time 11.9L, INR Comment 0.8, Activated Partial Thromboplast Time 29, Sodium Level 136, Potassium Level 4.8, Chloride Level 100, Carbon Dioxide Level 24, Anion Gap 12, Blood Urea Nitrogen 14, Creatinine 1.24, Estimat Glomerular Filtration Rate 71, BUN/Creatinine Ratio 11, Glucose Level 338H, Lactic Acid Level 1.47, Calcium Level 9.8, Corrected Calcium 10.2H, Total Bilirubin 0.2, Aspartate Amino Transf (AST/SGOT) 11, Alanine Aminotransferase (ALT/SGPT) 12, Alkaline Phosphatase 90, Total Protein 7.3, Albumin 3.5 08/30/21 23:19: Glucometer 238H 08/31/21 05:17: Glucometer 289H 08/31/21 05:20: White Blood Count 10.8, Red Blood Count 3.74L, Hemoglobin 10.5L, Hematocrit 33L, Mean Corpuscular Volume 88, Mean Corpuscular Hemoglobin 28, Mean Corpuscular He moglobin Concent 32, Red Cell Distribution Width 13.8, Platelet Count 301, Mean Platelet Volume 9.1, Immature Granulocyte % (Auto) 0, Neutrophils (%) (Auto) 56, Lymphocytes (%) (Auto) 36, Monocytes (%) (Auto) 7, Eosinophils (%) (Auto) 0, Basophils (%) (Auto) 1, Neutrophils # (Auto) 6.0, Lymphocytes # (Auto) 3.9, Monocytes # (Auto) 0.7, Eosinophils # (Auto) 0.0, Basophils # (Auto) 0.1, Immature Granulocyte # (Auto) 0.0, Prothrombin Time 12.2, INR Comment 0.9, Sodium Level 137, Potassium Level 4.5, Chloride Level 101, Carbon Dioxide Level 25, Anion Gap 11, Blood Urea Nitrogen 15, Creatinine 1.17, Estimat Glomerular Filtration Rate 76, BUN/Creatinine Ratio 13, Glucose Level 308H, Calcium Level 9.4, Corrected Calcium 10.0, Total Bilirubin 0.2, Aspartate Amino Transf (AST/SGOT) 7, Alanine Aminotransferase (ALT/SGPT) 15, Alkaline Phosphatase 80, Total Protein 6.9, Albumin 3.2 Assessment/Plan Assessment/Plan Assessment/Plan diabetic left 4th toe ulcer left 4th toe fracture infected left and right 4th toe with abscess/cellulitis poorly controlled dm daily tobacco use. superficial b/l lower extremity wounds Reviewed foot x ray of left and right left with 4 toe fx and soft tissue changes, the right 4th toe distally may have some slight erosion of the bone. I feel these toes are not salvageable and will need to be amputated he und erstands and agrees with plan of amputation of left and right 4th toe. he understands will need wound care until these heal in since they will be left open. Will also get vascular u/s and mounika to evaluate blood flow discussed smoking cessation- he's not interested discussed tight glucose control for healing which he understands. NPO Continue ABX May need cardiology consult for b/l lower extremity arteriogram RICHARD WALLIS DO Aug 31, 2021 07:15
--- NOTE | 2021-08-31 08:04 | Diagnostic Imaging Report ---
EXAMINATION: Right foot radiograph EXAM DATE: 08/31/2021 7:59 AM COMPARISON: None available. HISTORY: Osteomyelitis TECHNIQUE: 3 views FINDINGS: There is no acute fracture, dislocation, or destructive osseous process. The joint spaces are normal. The soft tissues are normal. IMPRESSION: 1. No acute osseous abnormality or obvious erosive process. Dictated by: Dictated on workstation # [id number]
[2021-08-31] MEDS: MAGNESIUM OXIDE (MAG-OX)400 MG TAB PO SCH ×2 (09:37→20:53)
[2021-08-31] MEDS: DOCUSATE SODIUM 100 MG (COLACE) CAP PO SCH ×2 (09:37→20:53)
[2021-08-31] MEDS: SENNOSIDES 8.6 MG (SENOKOT) TAB PO SCH ×2 (09:37→20:53)
[2021-08-31] MEDS: FOLIC ACID 1 MG TAB PO SCH (09:37)
[2021-08-31] MEDS: VANCOMYCIN 1250 MG/NS 250 ML IVPB IV SCH ×4 (09:47→21:52)
[2021-08-31] MEDS ORDERED: MIDAZOLAM 2 MG/2 ML (VERSED) VIAL IV ONE (10:30)
--- NOTE | 2021-08-31 11:09 | Diagnostic Imaging Report ---
INDICATION: Peripheral vascular disease. FINDINGS: Pressures are recorded in the brachial arteries and in the dorsalis pedis and posterior tibial arteries of both ankles. Ankle-brachial index on the right is 1.16. Ankle-brachial index on the left is 1.16. IMPRESSION: Normal bilateral ankle-brachial indices. Dictated by: Dictated on workstation # [id number]
--- NOTE | 2021-08-31 11:26 | Diagnostic Imaging Report ---
PROCEDURE: US Bilateral lower extremity arterial. TECHNIQUE: Multiple real-time grayscale images are obtained through both lower extremity arterial systems with color Doppler imaging and color Doppler spectral analysis. INDICATION: Diabetic foot ulcer. FINDINGS: There are triphasic wave patterns throughout the arterial systems of both lower extremities. There are normal velocities and velocity transitions through the legs. IMPRESSION: Normal arterial Doppler of lower extremities. Dictated by: Dictated on workstation # [id number]
[2021-08-31] MEDS: LORazepam INJ 2 MG/ML (ATIVAN) VIAL IV PRN ×3 (11:52→23:53)
--- NOTE | 2021-08-31 12:00 | Consultation-Cardiology ---
HPI-Cardiology Cardiology Consultation: Date of Consultation 08/31/21 Time Seen by a Provider: 15:10 Date of Admission 08-30-21 Attending Physician No,Local Physician Admitting Physician Admitting Physician: Cinthya Ceballos DO Attending Physician: Tennille Encarnacion MD Consulting Physician ANGIE AGUILAR HPI: Chief Complaint: Non-healing wounds Mr. Helms is a 51 yr old male admitted to [facility] from the ED with non-healing wounds to the 4th toes bilat. He is currently post amputation of those digits. He resting with snoring respirations. Older sister is at the bedside. She has adamantly requested patient not be awakened from sleep post op d/t concerns of combativeness. She verbalizes understanding that we need to assess patient, but has firmly advised patient not be awakened d/t concerns over combativeness and non-compliance. She states he has rights as a patient to rest post surgery. She states he has had non-healing wounds to his feet for "quite sometime" which he "picks at". She states he has had several wounds on his chest in the past, which he has been to wound care in the past. ED notes have been reviewed stating patient came to ED after using a gun cleaning brush to probe his toe wound presenting with a bone fragment in a container. Sister reports he drinks daily 4-6 drinks of hard liquor daily. She reports he has PTSD from his time in the service. She reports he smokes cigs. No report of illicit drug use. Review of Systems-Cardiology Review of Systems Other comments Unable to obtain d/t post surgical somolence All Other Systems Reviewed Negative Unless Noted: Yes (Negative excepted noted.) AVE-Mzpqsm-Gaifrx Hx Patient Social History Smoking Status: Current Everyday Smoker 2nd Hand Smoke Exposure: Yes Have you traveled recently?: No Alcohol Use?: Yes Pt feels they are or have been: No Tobacco type used: Cigarettes Past Medical History PMH As described under Assessment. Family Medical History Family Medical History: Documented past medical history of father having CAD - passing in his 60's from an [place] Allergies and Home Medications Allergies Coded Allergies: No Known Drug Allergies (Unverified , 10/16/15) Patient Home Medication List Acetaminophen (Tylenol Extra Strength) 500 Mg Tablet, 1,000 MG PO TID PRN for PAIN-MILD (1-4), (Reported) Entered as Reported by: THIEN MAHAJAN on 08/31/211446 Last Action: Held Albuterol Sulfate (Proair Hfa) 1 Puff Puff, 2 PUFF IH QID PRN for SHORTNESS OF BREATH, (Reported) Entered as Reported by: THIEN MAHAJAN on 08/31/211446 Last Action: Held Alogliptin Benzoate (Nesina) 25 Mg Tablet, 25 MG PO HS, (Reported) Entered as Reported by: THIEN MAHAJAN on 08/31/211446 Last Action: Held Ascorbate Calcium (Vitamin C) 500 Mg Tablet, 500 MG PO HS, (Reported) Entered as Reported by: THIEN MAHAJAN on 08/31/211446 Last Action: Held Atorvastatin Calcium (Atorvastatin Calcium) 80 Mg Tablet, 40 MG PO TWICE WEEKLY @HS, (Reported) Entered as Reported by: THIEN MAHAJAN on 08/31/211446 Last Action: Continued Cholecalciferol (Vitamin D3) (Vitamin D3) 25 Mcg (1000 Unit) Tablet, 25 MCG PO HS, (Reported) Entered as Reported by: THIEN MAHAJAN on 08/31/211446 Last Action: Held Ferrous Sulfate (Ferrous Sulfate) 324 Mg (65 Mg Iron) Tablet.dr, 324 MG PO HS, (Reported) Entered as Reported by: THIEN MAHAJAN on 08/31/211446 Last Action: Held Insulin Detemir (Levemir Flextouch) 100 Unit/Ml (3 Ml) Insuln.pen, 26 UNIT SQ HS, (Reported) Entered as Reported by: THIEN MAHAJAN on 08/31/211446 Last Action: Held Metformin HCl (Metformin HCl ER) 500 Mg Tab.er.24, 500 MG PO HS, (Reported) Entered as Reported by: THIEN MAHAJAN on 08/31/211446 Last Action: Held Multivitamin with Minerals (One Daily Plus Minerals) 1 Each Tablet, 1 EACH PO HS, (Reported) Entered as Reported by: THIEN MAHAJAN on 08/31/211446 Last Action: Held Pantoprazole Sodium (Pantoprazole Sodium) 40 Mg Tablet.dr, 40 MG PO HS, (Reported) Entered as Reported by: THIEN MAHAJAN on 08/31/211446 Last Action: Continued Sertraline HCl (Sertraline HCl) 100 Mg Tablet, 100 MG PO HS, (Reported) Entered as Reported by: THIEN MAHAJAN on 08/31/211446 Last Action: Continued Trazodone HCl (Trazodone HCl) 100 Mg Tablet, 100 MG PO HS PRN for SLEEP, (Reported) Entered as Reported by: THIEN MAHAJAN on 08/31/211446 Last Action: Continued Discontinued Medications Pantoprazole Sodium (Protonix) 40 Mg Granpkt.dr, 40 MG PO DAILY Discontinued Reason: Duplicate Order Prescribed by: CHAYO BABCOCK on 04/14/202143 Last Action: Discontinued Tramadol HCl (Tramadol HCl) 50 Mg Tablet, 50 MG PO Q6H PRN for PAIN Discontinued Reason: Duplicate Order Prescribed by: KANCHAN POLK on 07/27/201913 Last Action: Discontinued [Mental Health Pill] , (Reported) Discontinued Reason: Duplicate Order Entered as Reported by: MARTI ALMONTE on 10/16/15 1220 Last Action: Discontinued [Metformin] , (Reported) Discontinued Reason: Duplicate Order Entered as Reported by: MARTI ALMONTE on 10/16/15 1220 Last Action: Discontinued Physical Exam-Cardiology Physical Exam Vital Signs/I&O 08/31/21 09/01/21 09/01/21 09/01/21 23:18 01:00 03:52 07:00 Temp 37.2 37.0 Pulse 88 77 78 90 Resp 16 18 B/P (MAP) 141/76 (97) 124/79 (94) Pulse Ox 96 98 O2 Delivery Room Air Room Air 09/01/21 08:19 Temp 36.8 Pulse 90 Resp 24 B/P (MAP) 130/68 (88) Pulse Ox 97 O2 Delivery Room Air 08/31/21 23:59 Intake Total 190 ml Output Total 450 ml Balance -260 ml Capillary Refill : Constitutional: other (snorous respirations) Respiratory: other (respirations are even and non-labored) Extremities: no lower extremity edema bilateral, wound (dressing's in place to feet bilat) Neurologic/Psychiatric: other (see above) Skin: other (see above) Data Review Labs Laboratory Tests 08/31/21 10:36: SARS-CoV-2 RNA (RT-PCR) Not Detected 08/31/21 15:50: Glucometer 202H 08/31/21 20:18: Glucometer 213H 09/01/21 05:13: White Blood Count 15.3H, Red Blood Count 3.72L, Hemoglobin 10.4L, Hematocrit 33L , Mean Corpuscular Volume 87, Mean Corpuscular Hemoglobin 28, Mean Corpuscular Hemoglobin Concent 32, Red Cell Distribution Width 13.7, Platelet Count 296, Mean Platelet Volume 8.8L, Immature Granulocyte % (Auto) 0, Neutrophils (%) (Auto) 70, Lymphocytes (%) (Auto) 23, Monocytes (%) (Auto) 6, Eosinophils (%) (Auto) 0, Basophils (%) (Auto) 1, Neutrophils # (Auto) 10.7H, Lymphocytes # (Auto) 3.6, Monocytes # (Auto) 0.9, Eosinophils # (Auto) 0.0, Basophils # (Auto) 0.1, Immature Granulocyte # (Auto) 0.1, Sodium Level 140, Potassium Level 4.2, Chloride Level 105, Carbon Dioxide Level 24, Anion Gap 11, Blood Urea Nitrogen 13, Creatinine 1.07, Estimat Glomerular Filtration Rate 85, BUN/Creatinine Ratio 12, Glucose Level 101, Calcium Level 9.5, Corrected Calcium 10.0, Total Bilirubin 0.4, Aspartate Amino Transf (AST/SGOT) 10, Alanine Aminotransferase (ALT/SGPT) 14, Alkaline Phosphatase 76, Total Protein 7.1, Albumin 3.4, Triglycerides Level 160H, Cholesterol Level 201H, LDL Cholesterol Direct 144H, VLDL Cholesterol 32, HDL Cholesterol 40, Vancomycin Level Trough 23.8H 09/01/21 05:20: Glucometer 109 09/01/21 07:46: Glucometer 127H Microbiology 08/31/21 Gram Stain - Final, Resulted 08/31/21 Anaerobic Culture, Resulted Pending 08/31/21 Surgical Culture - Preliminary, Resulted Mixed Bacterial [place] Group B Streptococci Staphylococcus aureus 08/30/21 Blood Culture - Preliminary, Resulted No growth Radiology NAME: KIRBY HELMS [facility] REC#: [id number] PT STATUS: ADM IN : 1970 PHYSICIAN: REA NEWTON APRN ADMIT DATE: 08/30/21 Signed Date of Exam:08/30/21 CHEST 1 VIEW, AP/PA ONLY INDICATION: Sepsis workup. EXAMINATION: Chest 08/30/2021 FINDINGS: The cardiomediastinal silhouette is unremarkable. The pulmonary vasculature is within normal limits. The lungs and pleural spaces are clear. IMPRESSION: No evidence of an acute cardiopulmonary process. Dictated by: Dictated on workstation # [id number] Dict: 08/30/211954 Trans: 08/30/212255 [facility] [id number] Interpreted by: MONA THOMAS MD Electronically signed by: MONA THOMAS MD 08/30/212255 NAME: KIRBY HELMS [facility] REC#: [id number] PT STATUS: ADM IN : 1970 PHYSICIAN: RICHARD WALLIS DO ADMIT DATE: 08/30/21 Signed Date of Exam:08/31/21 FOOT, RIGHT, 3 VIEW EXAMINATION: Right foot radiograph EXAM DATE: 08/31/2021 7:59 AM COMPARISON: None available. HISTORY: Osteomyelitis TECHNIQUE: 3 views FINDINGS: There is no acute fracture, dislocation, or destructive osseous process. The joint spaces are normal. The soft tissues are normal. IMPRESSION: 1. No acute osseous abnormality or obvious erosive process. Dictated by: Dictated on workstation # [id number] Dict: 08/31/21801 Trans: 08/31/21 0853 [facility] [id number] Interpreted by: SWATI GAMBLE DO Electronically signed by: SWATI GAMBLE DO 08/31/2153 NAME: KIRBY HELMS [facility] REC#: [id number] PT STATUS: ADM IN : 1970 PHYSICIAN: RICHARD WALLIS DO ADMIT DATE: 08/30/21 Signed Date of Exam:08/31/21 US SHERRELL LOWER EXT [id number] PROCEDURE: US Bilateral lower extremity arterial. TECHNIQUE: Multiple real-time grayscale images are obtained through both lower extremity arterial systems with color Doppler imaging and color Doppler spectral analysis. INDICATION: Diabetic foot ulcer. FINDINGS: There are triphasic wave patterns throughout the arterial systems of both lower extremities. There are normal velocities and velocity transitions through the legs. IMPRESSION: Normal arterial Doppler of lower extremities. Dictated by: Dictated on workstation # [id number] Dict: 08/31/21 1123 Trans: 08/31/21 1158 [id number] Interpreted by: HUGO GAMBLE MD Electronically signed by: HUGO GAMBLE MD 08/31/21 1158 A/P-Cardiology Assessment/Admission Diagnosis Non-healing wounds to 4th toes bilat - s/p amputations per Dr. Wallis - arterial doppler of 08-31-21 showed: Normal arterial Doppler of lower extremities MPI of 04/25/19: no ischemia or infarction, LVEF 64% Echo of 04/21/19: LVEF 60-65%, mild conc LVH, RVSP 25 mmHg DM II Chronic tobacco use (smoking) H/O Chronic low back pain Chronic ETOH abuse - 4-6 drink of hard liquor daily H/O GI bleed in June 2019 - UGI treated with cauterization per pt report Fam h/o or early CAD (father of [place] in his early 60s) PTSD Discussion and Recomendations Complex management issue Sister at the bedside has adamantly requested he not be awoken from sleep (post op toe amputations) to be assessed appropriately, stating "he feels his rights have been stomped on by this hospital and he has the right to rest". She reports she fears combativeness and that the patient will leave AMA if he is awakened (prior to surgery pulled out IV and took monitor off d/t not being allowed to have a cigarette). Discussed importance of needing to assess patient appropriately, which she verbalizes understanding that we have to do such, but would like that to be done after he has been allowed to wake up Discussed importance to sister that he needs to be compliant with medications, smoking cessation, alcohol cessation. She verbalizes understanding of our recs, but states "he needs to be allowed something so that he will be a compliant patient" Will try to appropriately assess patient when he is alert Management of wounds per medical/surgical services Monitor lab Replace electrolytes as indicated Further recs will be based on his hospital course ANGIE GARCÍA Aug 31, 2021 12:00
[2021-08-31] MEDS ORDERED: LIDOCAINE PF 2% 5 ML (XYLOCAINE) VIAL ONE (12:14)
[2021-08-31] MEDS ORDERED: SEVOFLURANE (ULTANE) 15 ML INHAL SOLN ONE ×2 (12:14→13:15)
[2021-08-31] MEDS ORDERED: ONDANSETRON 4 MG/2 ML (SDV) Z0FRAN ONE (12:14)
[2021-08-31] MEDS ORDERED: MIDAZOLAM 2 MG/2 ML (VERSED) VIAL ONE (12:14)
[2021-08-31] MEDS ORDERED: proPOfol 200 MG/20 ML (DIPRIVAN) VIAL IV ONE (12:14)
[2021-08-31] MEDS ORDERED: fentaNYL INJ 100 MCG/2 ML AMP ONE (12:14)
[2021-08-31] MEDS ORDERED: LACTATED RINGERS 1,000 ML IV PRN (12:30)
--- NOTE | 2021-08-31 13:38 | Anesthesia-General Post-Op ---
General Patient Condition Mental Status/LOC: Same as Preop Cardiovascular: Satisfactory Nausea/Vomiting: Absent Respiratory: Satisfactory Pain: Controlled Complications: Absent Post Op Complications Complications None Follow Up Care/Instructions Patient Instructions None needed. Anesthesia/Patient Condition Patient Condition Patient is doing well, no complaints, stable vital signs, no apparent adverse anesthesia problems. No complications reported per nursing. ALLISON CARPIO CRNA Aug 31, 2021 13:38
[2021-08-31] MEDS ORDERED: MEPERIDINE (DEMEROL) INJ 50 MG/ML IVP ONE (13:45)
[2021-08-31] MEDS ORDERED: morphine INJ 10 MG/ML 1ML (SYR OR VIAL) IVP ONE (13:45)
[2021-08-31] MEDS ORDERED: ONDANSETRON 4 MG/2 ML (SDV) Z0FRAN IVP PRN (13:45)
[2021-08-31] MEDS ORDERED: PROMETHAZINE INJ 25 MG/ML (PHENERGAN) AMP IVP ONE (13:45)
[2021-08-31] MEDS ORDERED: CHOL-34 PO (14:47)
[2021-08-31] MEDS ORDERED: ALOG25TA PO (14:47)
[2021-08-31] MEDS ORDERED: ATOR80TA76 PO (14:47)
[2021-08-31] MEDS ORDERED: PANT40TA52 PO (14:47)
[2021-08-31] MEDS ORDERED: TRAZ-227 PO (14:47)
[2021-08-31] MEDS ORDERED: MULT-422 PO (14:47)
[2021-08-31] MEDS ORDERED: ASCO-262 PO (14:47)
[2021-08-31] MEDS ORDERED: SERT-414 PO (14:47)
[2021-08-31] MEDS ORDERED: RT-ALBUINH IH (14:47)
[2021-08-31] MEDS ORDERED: METF-478 PO (14:47)
[2021-08-31] MEDS ORDERED: INSU100I29 SQ (14:47)
[2021-08-31] MEDS ORDERED: FERR324T4 PO (14:47)
[2021-08-31] MEDS ORDERED: ACET-2267 PO (14:47)
[2021-08-31] MEDS ORDERED: diphenhydrAMINE 50 MG/ML INJ (BENADRYL) IVP NR (16:15)
[2021-08-31] MEDS: THIAMINE INJECTION 100 MG, FOLIC ACID INJECTION 1 MG, MAGNESIUM SULFATE 2 GM, VITAMIN M... IV SCH ×5 (16:15)
--- NOTE | 2021-08-31 16:42 | Consultation-Cardiology ---
HPI-Cardiology Cardiology Consultation: Date of Consultation 08/31/21 Time Seen by a Provider: 16:25 Date of Admission Attending Physician Natasha,Local Physician Admitting Physician Admitting Physician: Cinthya Ceballos DO Attending Physician: Tennille Encarnacion MD Consulting Physician RICHARD HOFFMAN MD, MA, FACP, FACC, FSCAI, CCDS HPI: Chief Complaint: Non-healing wounds Mr. Helms is a 51 yr old male admitted to [facility] from the ED with non-healing wounds to the 4th toes bilat. He is currently post amputation of those digits. He resting with snoring respirations. Older sister is at the bedside. She has adamantly requested patient not be awakened from sleep post op d/t concerns of combativeness. She verbalizes understanding that we need to assess patient, but has firmly advised patient not be awakened d/t concerns over combativeness and non-compliance. She states he has rights as a patient to rest post surgery. She states he has had non-healing wounds to his feet for "quite sometime" which he "picks at". She states he has had several wounds on his chest in the past, which he has been to wound care in the past. ED notes have been reviewed stating patient came to ED after using a gun cleaning brush to probe his toe wound presenting with a bone fragment in a container. Sister reports he drinks daily 4-6 drinks of hard liquor daily. She reports he has PTSD from his time in the service. She reports he smokes cigs. No report of illicit drug use. Review of Systems-Cardiology Review of Systems Constitutional: other (Review of systems cannot be obtained from the patient due to reasons noted under HPI) All Other Systems Reviewed Negative Unless Noted: Yes (Negative excepted noted.) OHX-Smhkff-Tlzosh Hx Patient Social History Smoking Status: Current Everyday Smoker 2nd Hand Smoke Exposure: Yes Have you traveled recently?: No Alcohol Use?: Yes Pt feels they are or have been: No Tobacco type used: Cigarettes Past Medical History PMH As described under Assessment. Family Medical History Family Medical History: Documented past medical history of father having CAD - passing in his 60's from an [place] Allergies and Home Medications Allergies Coded Allergies: No Known Drug Allergies (Unverified , 10/16/15) Patient Home Medication List Home Medication List Reviewed: Yes Acetaminophen (Tylenol Extra Strength) 500 Mg Tablet, 1,000 MG PO TID PRN for PAIN-MILD (1-4), (Reported) Entered as Reported by: THIEN MAHAJAN on 08/31/211446 Last Action: Reviewed Albuterol Sulfate (Proair Hfa) 1 Puff Puff, 2 PUFF IH QID PRN for SHORTNESS OF BREATH, (Reported) Entered as Reported by: THIEN MAHAJAN on 08/31/211446 Last Action: Reviewed Alogliptin Benzoate (Nesina) 25 Mg Tablet, 25 MG PO HS, (Reported) Entered as Reported by: THIEN MAHAJAN on 08/31/211446 Last Action: Reviewed Ascorbate Calcium (Vitamin C) 500 Mg Tablet, 500 MG PO HS, (Reported) Entered as Reported by: THIEN MAHAJAN on 08/31/211446 Last Action: Reviewed Atorvastatin Calcium (Atorvastatin Calcium) 80 Mg Tablet, 40 MG PO TWICE WEEKLY @HS, (Reported) Entered as Reported by: THIEN MAHAJAN on 08/31/211446 Last Action: Reviewed Cholecalciferol (Vitamin D3) (Vitamin D3) 25 Mcg (1000 Unit) Tablet, 25 MCG PO HS, (Reported) Entered as Reported by: THIEN MAHAJAN on 08/31/211446 Last Action: Reviewed Ferrous Sulfate (Ferrous Sulfate) 324 Mg (65 Mg Iron) Tablet.dr, 324 MG PO HS, (Reported) Entered as Reported by: THIEN MAHAJAN on 08/31/211446 Last Action: Reviewed Insulin Detemir (Levemir Flextouch) 100 Unit/Ml (3 Ml) Insuln.pen, 26 UNIT SQ HS, (Reported) Entered as Reported by: THIEN MAHAJAN on 08/31/211446 Last Action: Reviewed Metformin HCl (Metformin HCl ER) 500 Mg Tab.er.24, 500 MG PO HS, (Reported) Entered as Reported by: THIEN MAHAJAN on 08/31/211446 Last Action: Reviewed Multivitamin with Minerals (One Daily Plus Minerals) 1 Each Tablet, 1 EACH PO HS, (Reported) Entered as Reported by: THIEN MAHAJAN on 08/31/211446 Last Action: Reviewed Pantoprazole Sodium (Pantoprazole Sodium) 40 Mg Tablet.dr, 40 MG PO HS, (Reported) Entered as Reported by: THIEN MAHAJAN on 08/31/211446 Last Action: Reviewed Sertraline HCl (Sertraline HCl) 100 Mg Tablet, 100 MG PO HS, (Reported) Entered as Reported by: THIEN MAHAJAN on 08/31/211446 Last Action: Reviewed Trazodone HCl (Trazodone HCl) 100 Mg Tablet, 100 MG PO HS PRN for SLEEP, (Reported) Entered as Reported by: THIEN MAHAJAN on 08/31/211446 Last Action: Reviewed Discontinued Medications Pantoprazole Sodium (Protonix) 40 Mg Granpkt.dr, 40 MG PO DAILY Discontinued Reason: Duplicate Order Prescribed by: CHAYO BABCOCK on 04/14/202143 Last Action: Discontinued Tramadol HCl (Tramadol HCl) 50 Mg Tablet, 50 MG PO Q6H PRN for PAIN Discontinued Reason: Duplicate Order Prescribed by: KANCHAN POLK on 07/27/201913 Last Action: Discontinued [Mental Health Pill] , (Reported) Discontinued Reason: Duplicate Order Entered as Reported by: MARTI ALMONTE on 10/16/15 122 Last Action: Discontinued [Metformin] , (Reported) Discontinued Reason: Duplicate Order Entered as Reported by: MARTI ALMONTE on 10/16/15 122 Last Action: Discontinued Physical Exam-Cardiology Physical Exam Vital Signs/I&O 08/31/21 08/31/21 08/31/21 08/31/21 07:00 07:38 07:59 11:30 Temp 37.1 Pulse 82 81 Resp 18 B/P (MAP) 129/78 (95) Pulse Ox 98 O2 Delivery Room Air Room Air Room Air 08/31/21 08/31/21 08/31/21 08/31/21 13:32 13:32 13:42 13:42 Temp 36.3 Resp 16 16 B/P (MAP) 81/49 (60) 89/55 (66) Pulse Ox 99 100 O2 Delivery OxyMask OxyMask OxyMask OxyMask O2 Flow Rate 6 6 6 6 08/31/21 08/31/21 08/31/21 08/31/21 13:52 13:52 14:02 14:02 Resp 16 16 B/P (MAP) 92/59 (70) 92/60 (71) Pulse Ox 100 100 O2 Delivery OxyMask OxyMask OxyMask OxyMask O2 Flow Rate 6 4 4 4 08/31/21 08/31/21 08/31/21 08/31/21 14:12 14:12 14:22 14:22 Resp 16 16 B/P (MAP) 92/59 (70) 94/62 (73) Pulse Ox 97 96 O2 Delivery Room Air Room Air Room Air Room Air 08/31/21 08/31/21 08/31/21 14:30 14:30 15:45 Temp 36.4 36.6 Pulse 91 Resp 16 24 B/P (MAP) 94/62 (73) 112/74 (87) Pulse Ox 96 96 O2 Delivery Room Air Room Air Room Air 08/31/21 00:00 Intake Total 100 ml Balance 100 ml Capillary Refill : Constitutional: other (snorous respirations, intermittently agitated) Respiratory: other (respirations are even and non-labored) Cardiovascular: other (S1 and S2, regular) Extremities: no lower extremity edema bilateral, wound (dressing's in place to feet bilat) Neurologic/Psychiatric: other (see above) Skin: other (see above) Data Review Labs Laboratory Tests 08/30/21 19:29: White Blood Count 12.7H, Red Blood Count 3.99L, Hemoglobin 11.1L, Hematocrit 35L , Mean Corpuscular Volume 87, Mean Corpuscular Hemoglobin 28, Mean Corpuscular Hemoglobin Concent 32, Red Cell Distribution Width 13.5, Platelet Count 325, Mean Platelet Volume 8.7L, Immature Granulocyte % (Auto) 0, Neutrophils (%) (Auto) 65, Lymphocytes (%) (Auto) 28, Monocytes (%) (Auto) 5, Eosinophils (%) (Auto) 0, Basophils (%) (Auto) 1, Neutrophils # (Auto) 8.3H, Lymphocytes # (Auto) 3.6, Monocytes # (Auto) 0.7, Eosinophils # (Auto) 0.0, Basophils # (Auto) 0.1, Immature Granulocyte # (Auto) 0.1, Prothrombin Time 11.9L, INR Comment 0.8, Activated Partial Thromboplast Time 29, Sodium Level 136, Potassium Level 4.8, Chloride Level 100, Carbon Dioxide Level 24, Anion Gap 12, Blood Urea Nitrogen 14, Creatinine 1.24, Estimat Glomerular Filtration Rate 71, BUN/Creatinine Ratio 11, Glucose Level 338H, Lactic Acid Level 1.47, Calcium Level 9.8, Corrected Calcium 10.2H, Total Bilirubin 0.2, Aspartate Amino Transf (AST/SGOT) 11, Alanine Aminotransferase (ALT/SGPT) 12, Alkaline Phosphatase 90, Total Protein 7.3, Albumin 3.5 08/30/21 23:19: Glucometer 238H 08/31/21 05:17: Glucometer 289H 08/31/21 05:20: White Blood Count 10.8, Red Blood Count 3.74L, Hemoglobin 10.5L, Hematocrit 33L, Mean Corpuscular Volume 88, Mean Corpuscular Hemoglobin 28, Mean Corpuscular Hemoglobin Concent 32, Red Cell Distribution Width 13.8, Platelet Count 301, Mean Platelet Volume 9.1, Immature Granulocyte % (Auto) 0, Neutrophils (%) (Auto) 56, Lymphocytes (%) (Auto) 36, Monocytes (%) (Auto) 7, Eosinophils (%) (Auto) 0, Basophils (%) (Auto) 1, Neutrophils # (Auto) 6.0, Lymphocytes # (Auto) 3.9, Monocytes # (Auto) 0.7, Eosinophils # (Auto) 0.0, Basophils # (Auto) 0.1, Immature Granulocyte # (Auto) 0.0, Prothrombin Time 12.2, INR Comment 0.9, Sodium Level 137, Potassium Level 4.5, Chloride Level 101, Carbon Dioxide Level 25, Anion Gap 11, Blood Urea Nitrogen 15, Creatinine 1.17, Estimat Glomerular Filtration Rate 76, BUN/Creatinine Ratio 13, Glucose Level 308H, Calcium Level 9.4, Corrected Calcium 10.0, Total Bilirubin 0.2, Aspartate Amino Transf (AST/SGOT) 7, Alanine Aminotransferase (ALT/SGPT) 15, Alkaline Phosphatase 80, Total Protein 6.9, Albumin 3.2 08/31/21 10:36: SARS-CoV-2 RNA (RT-PCR) Not Detected 08/31/21 15:50: Glucometer 202H Microbiology 08/31/21 Gram Stain, Resulted Pending 08/31/21 Wound Culture - Preliminary, Resulted Group B Streptococci A/P-Cardiology Assessment/Admission Diagnosis Non-healing wounds to 4th toes bilat - s/p amputations per Dr. Roe - arterial doppler of 08-31-21 showed: Normal arterial Doppler of lower extremities MPI of 04/25/19: no ischemia or infarction, LVEF 64% Echo of 04/21/19: LVEF 60-65%, mild conc LVH, RVSP 25 mmHg DM II Chronic tobacco use (smoking) H/O Chronic low back pain Chronic ETOH abuse - 4-6 drink of hard liquor daily H/O GI bleed in June 2019 - UGI treated with cauterization per pt report Fam h/o or early CAD (father of [place] in his early 60s) PTSD Discussion and Recomendations Complex management issue Sister at the bedside has adamantly requested he not be awoken from sleep (post- op frmom toe amputations) to be assessed appropriately, stating to H RADHA Tidwell, that "he feels his rights have been stomped on by this hospital and he has the right to rest". She reports she fears combativeness and that the patient will leave AMA if he is awakened (prior to surgery pulled out IV and took monitor off d/t not being allowed to have a cigarette). Discussed importance of needing to assess patient appropriately, which she verbalizes understanding that we have to do such, but would like that to be done after he has been allowed to wake up Discussed importance to sister that he needs to be compliant with medications, smoking cessation, alcohol cessation. She verbalizes understanding of our recs, but states "he needs to be allowed something so that he will be a compliant patient" CV status appears stable. No evidence of significant PAD on noninvasive eval done earlier today Management of wounds per medical/surgical services Monitor lab Replace electrolytes as indicated I spoke with the sister and described our CV eval to her (to the extent that we have been allowed the eval) RICHARD HOFFMAN MD FACP FAC CCDS Aug 31, 2021 16:42
--- NOTE | 2021-08-31 17:33 | History & Physical-Hospitalist ---
History of Present Illness HPI/Chief Complaint Sean Helms is a 51 year old male who presented with bilateral foot wounds. He apparently had part of his toe fall out. He was using gun cleaning tools to examine and prod his toe. These wounds have been present for some time. He has decreased sensation due to diabetic neuropathy. He denies fevers and chills. He is a smoker. He also drinks alcohol. Source: patient Exam Limitations: no limitations Date Seen 08/31/21 Time Seen by a Provider: 10:20 Attending Physician No,Local Physician PCP Admitting Physician: Cinthya Ceballos DO Attending Physician: Shin Falcon MD Referring Physician Date of Admission Aug 30, 2021 at 20:39 Home Medications & Allergies Home Medications Reviewed patient Home Medication Reconciliation performed by pharmacy medication reconciliations heating repair technician and/or nursing. Patients Allergies have been reviewed. Allergies Allergies Coded Allergies No Known Drug Allergies (Unverified10/16/15) Past Fmvncty-[id number]-Huattb Hx Patient Social History Tobacco Use?: Yes Tobacco type used: Cigarettes Smoking Status: Current Everyday Smoker Smokeless Tobacco Frequency: Former User Use of E-Cig and/or Vaping dev: No Use of E-Cig and/or Vaping [place]: Never a User Substance use?: No Substance frequency: Rarely Alcohol Use?: Yes Alcohol type: Hard Liquor Alcohol Frequency: Daily Additional Alcohol Comments: "4 SHOTS PER DAY" Pt feels they are or have been: No Immunizations Up To Date First/Initial COVID19 Vaccinat: DECLINED Tetanus Booster (TDap): More Than 5 Years Hepatitis A: Yes Hepatitis B: Yes Seasonal Allergies Seasonal Allergies: No Current Status Advance Directives: No Communicates: Verbally Primary Language: Liberian Preferred Spoken Language: Liberian Is interpretation needed?: No Sensory deficits: Vision impairment Implanted or Applied Medical D: None Past Medical History Surgeries: Orthopedic Asthma Chronic Back Pain Diabetes, Insulin dep, Diabetes, Non-Insulin dep Tinnitis Anxiety, PTSD, Depression Family Medical History No Pertinent Family Hx Review of Systems Constitutional: no symptoms reported EENTM: no symptoms reported Respiratory: no symptoms reported Cardiovascular: no symptoms reported Gastrointestinal: no symptoms reported Genitourinary: no symptoms reported Musculoskeletal: no symptoms reported Skin: change in color, lesions Psychiatric/Neurological: No Symptoms Reported Physical Exam Physical Exam Vital Signs Vital Signs - First Documented 08/30/21 18:34 Temp 36.2 Pulse 127 Resp 18 B/P (MAP) 135/81 (99) Pulse Ox 98 Capillary Refill : Height, Weight, BMI Height: 5'8" Weight: 200lbs. oz. 90.640725if; 22.98 BMI Method:Stated General Appearance: No Apparent Distress HEENT: PERRL/EOMI, Pharynx Normal Neck: Normal Inspection, Supple Respiratory: Lungs Clear, Normal Breath Sounds, No Respiratory Distress Cardiovascular: Regular Rate, Rhythm, No Murmur Gastrointestinal: Normal Bowel Sounds, Non Tender, Soft Extremity: Other (bilateral foot and ankle wounds) Neurologic/Psychiatric: Alert, Other (agitated, irritable) Skin: Warm/Dry, Other (bilateral foot wounds) Results Results/Procedures Labs Laboratory Tests 08/30/21 19:29 08/31/21 05:20 Patient resulted labs reviewed. Imaging: Reviewed Imaging Report Assessment/Plan Admission Diagnosis Sepsis due to osteomyelitis Admission Status: Inpatient Order (span 2 midnights) Reason for Inpatient Admission: IV antibiotics, surgical intervention Assessment and Plan Sepsis due to osteomyelitis XR left foot with 4th phalanx fracture XR right foot unremarkable US lower extremities with normal blood flow Surgery consulted Planning for bilateral 4th toe amputations IV antibiotics IV fluids Cardiology consult for PAD evaluation T2DM with hyperglycemia Levemir Sliding scale insulin Tobacco abuse Alcohol abuse Recommend cessation HLD GERD Check lipid panel Continue home meds DVT prophylaxis: Lovenox Diagnosis/Problems Diagnosis/Problems (1) Sepsis Status: Acute (2) Osteomyelitis Status: Acute Qualifiers: Osteomyelitis location: foot Laterality: unspecified laterality (3) T2DM (type 2 diabetes mellitus) Status: Acute Qualifiers: Diabetes mellitus intermediate manager insulin use: with intermediate manager use Diabetes mellitus complication status: with hyperglycemia Qualified Codes: E11.65 - Type 2 diabetes mellitus with hyperglycemia; 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
[2021-08-31] MEDS ORDERED: traZODone 100 MG (DESYREL) TAB PO PRN (17:45)
--- NOTE | 2021-08-31 18:17 | Progress Note-Post Operative ---
Post-Operative Progess Note Surgeon (s)/Molder Operator (s) Surgeon RICHARD WALLIS DO Molder Operator: na Pre-Operative Diagnosis infected left and right fourth toes with abscess Post-Operative Diagnosis same Procedure & Operative Findings Date of Procedure 08/31/21 Procedure Performed/Findings left and right fourth toe amputations Anesthesia Type general Estimated Blood Loss Estimated blood loss (mL): 200 mL Specimens/Packing Specimens Removed na RICHARD WALLIS DO Aug 31, 2021 18:17
[2021-08-31] MEDS: SERTRALINE 100 MG (ZOLOFT) TAB PO SCH (20:53)
[2021-08-31] MEDS: PANTOPRAZOLE 40 MG (PROTONIX) TAB PO SCH (20:53)
[2021-08-31] MEDS: morphine INJ 4 MG/ML 1 ML (VIAL/SYRINGE) IV PRN (22:43)
[2021-08-31] MEDS: diphenhydrAMINE 50 MG/ML INJ (BENADRYL) IVP PRN (23:14)
[2021-09-01] MEDS: NS IV 1000 ML 1,000 ML IV SCH ×2 (02:36→17:31)
[2021-09-01] MEDS: LORazepam INJ 2 MG/ML (ATIVAN) VIAL IV PRN (03:28)
[2021-09-01] MEDS: PIPERACILLIN SODIUM/TAZOBACTAM 4.5 GM in NS (IVPB) 100 ML IV SCH ×3 (03:28→21:00)
[2021-09-01 03:52] VITALS: BP 124/79
[2021-09-01] MEDS: inSUlin ASPART (NovoLOG) 1 UNIT/0.01 ML (CHARGE PER UNIT) SC SCH ×4 (05:21→21:04)
[2021-09-01 05:28] LABS: BASOPHILS # (AUTO) 0.1 10^3/uL (0.0-0.1); BASOPHILS % (AUTO) 1 % (0-10); EOSINOPHILS % (AUTO) 0 % (0-10); HEMATOCRIT 33 % (40-54); HEMOGLOBIN 10.4 g/dL (13.3-17.7); LYMPHOCYTES # (AUTO) 3.6 10^3/uL (1.0-4.0); LYMPHOCYTES % (AUTO) 23 % (12-44); MEAN CORPUSCULAR HEMOGLOBIN 28 pg (25-34); MEAN CORPUSCULAR HGB CONC 32 g/dL (32-36); MEAN CORPUSCULAR VOLUME 87 fL (80-99); MEAN PLATELET VOLUME 8.8 fL (9.0-12.2); MONOCYTES # (AUTO) 0.9 10^3/uL (0.0-1.0); MONOCYTES % (AUTO) 6 % (0-12); NEUTROPHILS # (AUTO) 10.7 10^3/uL (1.8-7.8); NEUTROPHILS % (AUTO) 70 % (42-75); PLATELET COUNT 296 10^3/uL (130-400); WHITE BLOOD COUNT 15.3 10^3/uL (4.3-11.0)
[2021-09-01] MEDS: MULTIVIT W/MINERALS TAB (THERAGRAN M) PO SCH (05:46)
[2021-09-01] MEDS: THIAMINE 100 MG (VITAMIN B-1) TAB PO SCH (05:47)
[2021-09-01] MEDS: morphine INJ 4 MG/ML 1 ML (VIAL/SYRINGE) IV PRN (05:47)
[2021-09-01 05:50] LABS: ALBUMIN 3.4 GM/DL (3.2-4.5); POTASSIUM 4.2 MMOL/L (3.6-5.0)
[2021-09-01 05:51] LABS: CALCIUM 9.5 MG/DL (8.5-10.1)
[2021-09-01 05:52] LABS: TOTAL PROTEIN 7.1 GM/DL (6.4-8.2)
[2021-09-01 05:54] LABS: BILIRUBIN,TOTAL 0.4 MG/DL (0.1-1.0)
[2021-09-01 05:56] LABS: CREATININE SERUM 1.07 MG/DL (0.60-1.30)
--- NOTE | 2021-09-01 06:28 | OPERATIVE REPORT ---
DATE OF SERVICE: 08/31/2021 PREOPERATIVE DIAGNOSES: Infected left and right fourth toes with abscesses. POSTOPERATIVE DIAGNOSES: Infected left and right fourth toes with abscesses. PROCEDURE: Left and right fourth toe amputations. SURGEON: Richard Roe DO ANESTHESIA: General. ESTIMATED BLOOD LOSS: Minimal. COMPLICATIONS: None. INDICATIONS: The patient is a 51-year-old male, who presented to the hospital with wound to the lower extremities. He has superficial wounds that appear to be healing, but he also has a left fourth toe with diabetic ulceration, which is infected and draining, also a fracture. The right fourth toe has ulceration as well, which the toe feels like there is a complete abscess within it and there is purulent material draining from it as well. We discussed options, which the patient understands risks and benefits of the above procedure and wished to proceed in this fashion. The patient was taken to the operating suite, was prepped and draped in sterile fashion. Timeout was performed. The right fourth toe using cautery was used to dissect around the base circumferentially. The cautery was used to dissect down through the subcutaneous tissue and muscle and encountered the distal portion of the fourth metatarsal and the toe was able to be removed in its entirety. Cautery was used to achieve hemostasis. The left fourth toe was then encountered, purulent material was coming from it and culture was obtained. Using cautery, the base of the left fourth toes cut circumferentially. Cautery was used to dissect down through the subcutaneous tissues and the muscle to the distal portion of the metatarsal, which was then released and the entire toe was removed. Cautery was used to achieve hemostasis. The wounds were then irrigated with copious amounts of irrigation and then packed in a sterile fashion. The patient tolerated the procedure well without any complications. He was taken to recovery room in stable condition. Job ID: [id number] DocumentID: [id number] Dictated Date: 08/31/2021 21:17:40 Glue Drier Operator Date: 09/01/2021 06:27:18 Dictated By: RICHARD ROE DO
[2021-09-01] MEDS ORDERED: TROUGH ORDER-PHARMACY XX ONE (08:00)
[2021-09-01 08:19] VITALS: BP 130/68
[2021-09-01] MEDS: VANCOMYCIN 1250 MG/NS 250 ML IVPB IV SCH ×2 (09:20)
[2021-09-01] MEDS: THIAMINE INJECTION 100 MG, FOLIC ACID INJECTION 1 MG, MAGNESIUM SULFATE 2 GM, VITAMIN M... IV SCH ×5 (09:34)
[2021-09-01] MEDS: MAGNESIUM OXIDE (MAG-OX)400 MG TAB PO SCH ×2 (09:35→21:03)
[2021-09-01] MEDS: DOCUSATE SODIUM 100 MG (COLACE) CAP PO SCH ×2 (09:35→21:03)
[2021-09-01] MEDS: SENNOSIDES 8.6 MG (SENOKOT) TAB PO SCH ×2 (09:35→21:03)
[2021-09-01] MEDS: FOLIC ACID 1 MG TAB PO SCH (09:35)
--- NOTE | 2021-09-01 09:37 | Progress Note - Cardiology ---
Cardiology SOAP Progress Note Subjective: Lying in bed Conversation inappropriate at times to the situation No c/o CP or SOB Co-operative this morning with physical exam Objective: I&O/Vital Signs 08/31/21 09/01/21 09/01/21 09/01/21 23:18 01:00 03:52 07:00 Temp 37.2 37.0 Pulse 88 77 78 90 Resp 16 18 B/P (MAP) 141/76 (97) 124/79 (94) Pulse Ox 96 98 O2 Delivery Room Air Room Air 09/01/21 08:19 Temp 36.8 Pulse 90 Resp 24 B/P (MAP) 130/68 (88) Pulse Ox 97 O2 Delivery Room Air 08/31/21 23:59 Intake Total 190 ml Output Total 450 ml Balance -260 ml Weight (Pounds): 200 Weight (Calculated Kilograms): 90.835448 Constitutional: AAO x 3 (inappropriate conversation to the situation at times) Respiratory: other (respirations are even and non-labored) Cardiovascular: regular rate-rhythm, other (S1 and S2, regular) Gastrointestional: No tender; soft, round, audible bowel sounds Extremities: no lower extremity edema bilateral, wound (dressing's in place to feet bilat) Neurologic/Psychiatric: grossly intact (moves all extremities) Skin: other (see above) Results/Procedures: Labs Laboratory Tests 08/31/21 10:36: SARS-CoV-2 RNA (RT-PCR) Not Detected 08/31/21 15:50: Glucometer 202H 08/31/21 20:18: Glucometer 213H 09/01/21 05:13: White Blood Count 15.3H, Red Blood Count 3.72L, Hemoglobin 10.4L, Hematocrit 33L , Mean Corpuscular Volume 87, Mean Corpuscular Hemoglobin 28, Mean Corpuscular Hemoglobin Concent 32, Red Cell Distribution Width 13.7, Platelet Count 296, Mean Platelet Volume 8.8L, Immature Granulocyte % (Auto) 0, Neutrophils (%) (Auto) 70, Lymphocytes (%) (Auto) 23, Monocytes (%) (Auto) 6, Eosinophils (%) (Auto) 0, Basophils (%) (Auto) 1, Neutrophils # (Auto) 10.7H, Lymphocytes # ( Auto) 3.6, Monocytes # (Auto) 0.9, Eosinophils # (Auto) 0.0, Basophils # (Auto) 0.1, Immature Granulocyte # (Auto) 0.1, Sodium Level 140, Potassium Level 4.2, Chloride Level 105, Carbon Dioxide Level 24, Anion Gap 11, Blood Urea Nitrogen 13, Creatinine 1.07, Estimat Glomerular Filtration Rate 85, BUN/Creatinine Ratio 12, Glucose Level 101, Calcium Level 9.5, Corrected Calcium 10.0, Total Bilirubin 0.4, Aspartate Amino Transf (AST/SGOT) 10, Alanine Aminotransferase (ALT/SGPT) 14, Alkaline Phosphatase 76, Total Protein 7.1, Albumin 3.4, Triglycerides Level 160H, Cholesterol Level 201H, LDL Cholesterol Direct 144H, VLDL Cholesterol 32, HDL Cholesterol 40, Vancomycin Level Trough 23.8H 09/01/21 05:20: Glucometer 109 09/01/21 07:46: Glucometer 127H Microbiology 08/31/21 Gram Stain - Final, Resulted 08/31/21 Anaerobic Culture, Resulted Pending 08/31/21 Surgical Culture - Preliminary, Resulted Mixed Bacterial [place] Group B Streptococci Staphylococcus aureus 08/30/21 Blood Culture - Preliminary, Resulted No growth Laboratory Tests 08/30/21 19:29 08/31/21 05:20 09/01/21 05:13 A/P: Assessment: Non-healing wounds to 4th toes bilat - s/p amputations per Dr. Roe - arterial doppler of 08-31-21 showed: Normal arterial Doppler of lower extremities MPI of 04/25/19: no ischemia or infarction, LVEF 64% Echo of 04/21/19: LVEF 60-65%, mild conc LVH, RVSP 25 mmHg DM II Chronic tobacco use (smoking) H/O Chronic low back pain Chronic ETOH abuse - 4-6 drink of hard liquor daily H/O GI bleed in June 2019 - UGI treated with cauterization per pt report Fam h/o or early CAD (father of [place] in his early 60s) PTSD Plan: Complex management issue Advise cessation of alcohol and tobacco Management of wounds per medical/surgical services Monitor lab Replace electrolytes as indicated ANGIE GARCÍA Sep 01, 2021 09:37
[2021-09-01] MEDS: VANCOMYCIN 1 GM/NS 250 ML IVPB IV SCH ×4 (10:51→23:45)
[2021-09-01 12:04] VITALS: BP 130/73
--- NOTE | 2021-09-01 12:08 | Progress Note - Cardiology ---
Cardiology SOAP Progress Note Subjective: No cp or palp or shortness of breath Some gen malaise and weakness No n/v/d Objective: I&O/Vital Signs 09/01/21 09/01/21 09/01/21 09/01/21 01:00 03:52 07:00 08:19 Temp 37.0 36.8 Pulse 77 78 90 90 Resp 18 24 B/P (MAP) 124/79 (94) 130/68 (88) Pulse Ox 98 97 O2 Delivery Room Air Room Air 09/01/21 12:04 Temp 37.2 Pulse 84 Resp 16 B/P (MAP) 130/73 (92) Pulse Ox 99 O2 Delivery Room Air 09/01/21 00:00 Intake Total 190 ml Output Total 450 ml Balance -260 ml Weight (Pounds): 200 Weight (Calculated Kilograms): 90.800685 Constitutional: AAO x 3 (inappropriate conversation to the situation at times) Respiratory: other (respirations are even and non-labored) Cardiovascular: regular rate-rhythm, other (S1 and S2, regular) Gastrointestional: No tender; soft, round, audible bowel sounds Extremities: no lower extremity edema bilateral, wound (dressing's in place to feet bilat) Neurologic/Psychiatric: other (moves all limbs equally) Skin: other (see above) Results/Procedures: Labs Laboratory Tests 08/31/21 15:50: Glucometer 202H 08/31/21 20:18: Glucometer 213H 09/01/21 05:13: White Blood Count 15.3H, Red Blood Count 3.72L, Hemoglobin 10.4L, Hematocrit 33L , Mean Corpuscular Volume 87, Mean Corpuscular Hemoglobin 28, Mean Corpuscular Hemoglobin Concent 32, Red Cell Distribution Width 13.7, Platelet Count 296, Mean Platelet Volume 8.8L, Immature Granulocyte % (Auto) 0, Neutrophils (%) (Auto) 70, Lymphocytes (%) (Auto) 23, Monocytes (%) (Auto) 6, Eosinophils (%) (Auto) 0, Basophils (%) (Auto) 1, Neutrophils # (Auto) 10.7H, Lymphocytes # (Auto) 3.6, Monocytes # (Auto) 0.9, Eosinophils # (Auto) 0.0, Basophils # (Auto) 0.1, Immature Granulocyte # (Auto) 0.1, Sodium Level 140, Potassium Level 4.2, Chloride Level 105, Carbon Dioxide Level 24, Anion Gap 11, Blood Urea Nitrogen 13, Creatinine 1.07, Estimat Glomerular Filtration Rate 85, BUN/Creatinine Ratio 12, Glucose Level 101, Calcium Level 9.5, Corrected Calcium 10.0, Total Bilirubin 0.4, Aspartate Amino Transf (AST/SGOT) 10, Alanine Aminotransferase (ALT/SGPT) 14, Alkaline Phosphatase 76, Total Protein 7.1, Albumin 3.4, Triglycerides Level 160H, Cholesterol Level 201H, LDL Cholesterol Direct 144H, VLDL Cholesterol 32, HDL Cholesterol 40, Vancomycin Level Trough 23.8H 09/01/21 05:20: Glucometer 109 09/01/21 07:46: Glucometer 127H 09/01/21 11:51: Glucometer 272H Microbiology 08/31/21 Gram Stain - Final, Resulted 08/31/21 Anaerobic Culture, Resulted Pending 08/31/21 Surgical Culture - Preliminary, Resulted Mixed Bacterial [place] Group B Streptococci Staphylococcus aureus 08/31/21 MRSA Screen - Final, Complete MRSA not isolated 08/30/21 Blood Culture - Preliminary, Resulted No growth Laboratory Tests 08/30/21 19:29 08/31/21 05:20 09/01/21 05:13 A/P: Assessment: Non-healing wounds to 4th toes bilat - s/p amputations per Dr. Roe - arterial doppler of 08-31-21 showed: Normal arterial Doppler of lower extremities MPI of 04/25/19: no ischemia or infarction, LVEF 64% Echo of 04/21/19: LVEF 60-65%, mild conc LVH, RVSP 25 mmHg DM II Chronic tobacco use (smoking) H/O Chronic low back pain Chronic ETOH abuse - 4-6 drink of hard liquor daily H/O GI bleed in June 2019 - UGI treated with cauterization per pt report Fam h/o or early CAD (father of [place] in his early 60s) PTSD Plan: Complex management issue Advise cessation of alcohol and tobacco Management of wounds per medical/surgical services Monitor lab Replace electrolytes as indicated RICHARD HOFFMAN MD FACP FAC CCDS Sep 01, 2021 12:08
[2021-09-01] MEDS: diphenhydrAMINE 50 MG/ML INJ (BENADRYL) IVP PRN (14:59)
[2021-09-01 15:31] VITALS: BP 130/73
--- NOTE | 2021-09-01 17:01 | Progress Note - Hospitalist ---
Subjective HPI/CC On Admission Date Seen by Provider: Sep 01, 2021 Time Seen by Provider: 10:15 Sean Helms is a 51 year old male who presented with bilateral foot wounds. He apparently had part of his toe fall out. He was using gun cleaning tools to examine and prod his toe. These wounds have been present for some time. He has decreased sensation due to diabetic neuropathy. He denies fevers and chills. He is a smoker. He also drinks alcohol. Subjective/Events-last exam He is sitting in his chair by the window. He is not having pain. He appears comfortable. Focused Exam Lactate Level 08/30/21 19:29: Lactic Acid Level 1.47 Objective Exam Vital Signs Vital Signs Date Time Temp Pulse Resp B/P (MAP) Pulse Ox O2 Delivery O2 Flow Rate FiO2 09/01/21 15:31 37.5 92 16 130/73 (92) 96 Room Air 08/31/21 14:02 4 Capillary Refill : General Appearance: No Apparent Distress, WD/WN Respiratory: Lungs Clear, No Respiratory Distress Cardiovascular: Regular Rate, Rhythm, No Murmur Gastrointestinal: Normal Bowel Sounds, Non Tender, Soft Extremity: No Inflammation, No Swelling; Other (bilateral foot bandages in place) Neurologic/Psychiatric: Alert, No Motor/Sensory Deficits, Other (flat affect) Skin: Normal Color, Warm/Dry Results/Procedures Lab Laboratory Tests 09/01/21 05:13 Patient resulted labs reviewed. Imaging: Reviewed Imaging Report Assessment/Plan Assessment and Plan Assess & Plan/Chief Complaint Sepsis due to osteomyelitis Surgery following s/p bilateral 4th phalanx amputations Wound cultures with presumptive MRSA and group B strep Continue Vanc and Zosyn IV fluids T2DM with hyperglycemia Levemir Sliding scale insulin Tobacco abuse Alcohol abuse Recommend cessation HLD GERD Lipitor Continue home meds DVT prophylaxis: Lovenox Diagnosis/Problems Diagnosis/Problems (1) Sepsis Status: Acute (2) Osteomyelitis Status: Acute Qualifiers: Osteomyelitis location: foot Laterality: unspecified laterality (3) T2DM (type 2 diabetes mellitus) Status: Acute Qualifiers: Diabetes mellitus retirement insulin use: with lime trimmer use Diabetes mellitus complication status: with hyperglycemia Qualified Codes: E11.65 - Type 2 diabetes mellitus with hyperglycemia; Z79.4 - FDC (current) use of insulin (4) Tobacco abuse Status: Chronic (5) ETOH abuse Status: Chronic SHIN FALCON MD Sep 01, 2021 17:01
[2021-09-01 19:49] VITALS: BP 123/68
[2021-09-01] MEDS: SERTRALINE 100 MG (ZOLOFT) TAB PO SCH (21:01)
[2021-09-01] MEDS: PANTOPRAZOLE 40 MG (PROTONIX) TAB PO SCH (21:03)
[2021-09-01] MEDS: ENOXAPARIN 40 MG/0.4 ML (LOVENOX) SYR SC SCH (21:04)
--- NOTE | 2021-09-01 21:31 | Progress Note - Surgery ---
Subjective Date Seen by a Provider: Sep 01, 2021 Time Seen by a Provider: 17:30 Subjective/Events-last exam Patient is doing okay. He still has wound dressings changed yet. Patient pain is under control. Patient slightly anxious. Denies any nausea vomiting fever sweats chills shortness of breath or chest pain. Focused Exam Lactate Level 08/30/21 19:29: Lactic Acid Level 1.47 Objective Exam Vital Signs Date Time Temp Pulse Resp B/P (MAP) Pulse Ox O2 Delivery O2 Flow Rate FiO2 09/01/21 19:49 36.7 83 20 123/68 (86) 98 Room Air 09/01/21 19:00 92 09/01/21 15:31 37.5 92 16 130/73 (92) 96 Room Air 09/01/21 13:00 86 09/01/21 12:04 37.2 84 16 130/73 (92) 99 Room Air 09/01/21 08:19 36.8 90 24 130/68 (88) 97 Room Air 09/01/21 07:00 90 09/01/21 03:52 37.0 78 18 124/79 (94) 98 Room Air 09/01/21 01:00 77 08/31/21 23:18 37.2 88 16 141/76 (97) 96 Room Air I & O 09/01/21 07:00 Intake Total 490 ml Output Total 1250 ml Balance -760 ml Capillary Refill : General Appearance: No Apparent Distress, WD/WN HEENT: PERRL/EOMI, Pharynx Normal Neck: Normal Inspection, Supple Respiratory: Lungs Clear, No Respiratory Distress Cardiovascular: Regular Rate, Rhythm, No Murmur Gastrointestinal: non tender, soft Extremity: No Inflammation, No Swelling; Other (bilateral foot bandages in place, these were taken down the wounds are clean no purulent drainage) Neurologic/Psychiatric: Alert, No Motor/Sensory Deficits, Other (flat affect) Skin: Normal Color, Warm/Dry Results Lab Laboratory Tests 09/01/21 05:13: White Blood Count 15.3H, Red Blood Count 3.72L, Hemoglobin 10.4L, Hematocrit 33L , Mean Corpuscular Volume 87, Mean Corpuscular Hemoglobin 28, Mean Corpuscular Hemoglobin Concent 32, Red Cell Distribution Width 13.7, Platelet Count 296, Mean Platelet Volume 8.8L, Immature Granulocyte % (Auto) 0, Neutrophils (%) (Auto) 70, Lymphocytes (%) (Auto) 23, Monocytes (%) (Auto) 6, Eosinophils (%) (Auto) 0, Basophils (%) (Auto) 1, Neutrophils # (Auto) 10.7H, Lymphocytes # (Auto) 3.6, Monocytes # (Auto) 0.9, Eosinophils # (Auto) 0.0, Basophils # (Auto) 0.1, Immature Granulocyte # (Auto) 0.1, Sodium Level 140, Potassium Level 4.2, Chloride Level 105, Carbon Dioxide Level 24, Anion Gap 11, Blood Urea Nitrogen 13, Creatinine 1.07, Estimat Glomerular Filtration Rate 85, BUN/Creatinine Ratio 12, Glucose Level 101, Calcium Level 9.5, Corrected Calcium 10.0, Total Bilirubin 0.4, Aspartate Amino Transf (AST/SGOT) 10, Alanine Aminotransferase (ALT/SGPT) 14, Alkaline Phosphatase 76, Total Protein 7.1, Albumin 3.4, Triglycerides Level 160H, Cholesterol Level 201H, LDL Cholesterol Direct 144H, VLDL Cholesterol 32, HDL Cholesterol 40, Vancomycin Level Trough 23.8H 09/01/21 05:20: Glucometer 109 09/01/21 07:46: Glucometer 127H 09/01/21 11:51: Glucometer 272H 09/01/21 16:20: Glucometer 166H 09/01/21 20:38: Glucometer 198H Microbiology 08/31/21 Gram Stain - Final, Resulted 08/31/21 Anaerobic Culture, Resulted Pending 08/31/21 Surgical Culture - Preliminary, Resulted Mixed Bacterial [place] Group B Streptococci Staphylococcus aureus 08/31/21 MRSA Screen - Final, Complete MRSA not isolated 08/30/21 Blood Culture - Preliminary, Resulted No growth Assessment/Plan Assessment/Plan Assessment/Plan diabetic left 4th toe ulcer left 4th toe fracture infected left and right 4th toe with abscess/cellulitis poorly controlled dm daily tobacco use. superficial b/l lower extremity wounds Status post amputation of the left fourth and right fourth toes. Patient continue with antibiotics. Wound care daily Pain controlled . RICHARD WALLIS DO Sep 01, 2021 21:31
[2021-09-02 04:00] VITALS: BP 112/70
[2021-09-02] MEDS: inSUlin ASPART (NovoLOG) 1 UNIT/0.01 ML (CHARGE PER UNIT) SC SCH ×2 (04:57→11:57)
[2021-09-02] MEDS: MULTIVIT W/MINERALS TAB (THERAGRAN M) PO SCH (05:16)
[2021-09-02] MEDS: THIAMINE 100 MG (VITAMIN B-1) TAB PO SCH (05:16)
[2021-09-02] MEDS: PIPERACILLIN SODIUM/TAZOBACTAM 4.5 GM in NS (IVPB) 100 ML IV SCH (05:16)
[2021-09-02 05:54] LABS: BASOPHILS # (AUTO) 0.1 10^3/uL (0.0-0.1); BASOPHILS % (AUTO) 1 % (0-10); EOSINOPHILS % (AUTO) 0 % (0-10); HEMATOCRIT 26 % (40-54); HEMOGLOBIN 8.1 g/dL (13.3-17.7); LYMPHOCYTES # (AUTO) 3.2 10^3/uL (1.0-4.0); LYMPHOCYTES % (AUTO) 35 % (12-44); MEAN CORPUSCULAR HGB CONC 31 g/dL (32-36); MEAN CORPUSCULAR VOLUME 89 fL (80-99); MONOCYTES # (AUTO) 0.9 10^3/uL (0.0-1.0); MONOCYTES % (AUTO) 10 % (0-12); NEUTROPHILS # (AUTO) 5.1 10^3/uL (1.8-7.8); NEUTROPHILS % (AUTO) 55 % (42-75); PLATELET COUNT 282 10^3/uL (130-400); WHITE BLOOD COUNT 9.3 10^3/uL (4.3-11.0)
[2021-09-02 06:00] LABS: MEAN CORPUSCULAR HEMOGLOBIN 27 pg (25-34)
[2021-09-02 06:08] LABS: ALBUMIN 3.1 GM/DL (3.2-4.5); POTASSIUM 4.1 MMOL/L (3.6-5.0)
[2021-09-02 06:09] LABS: CALCIUM 9.2 MG/DL (8.5-10.1)
[2021-09-02 06:11] LABS: TOTAL PROTEIN 6.7 GM/DL (6.4-8.2)
[2021-09-02 06:13] LABS: BILIRUBIN,TOTAL 0.3 MG/DL (0.1-1.0)
[2021-09-02 06:14] LABS: CREATININE SERUM 1.07 MG/DL (0.60-1.30)
[2021-09-02 08:22] VITALS: BP 112/65
[2021-09-02] MEDS: THIAMINE INJECTION 100 MG, FOLIC ACID INJECTION 1 MG, MAGNESIUM SULFATE 2 GM, VITAMIN M... IV SCH ×5 (10:14)
[2021-09-02] MEDS: MAGNESIUM OXIDE (MAG-OX)400 MG TAB PO SCH (10:15)
[2021-09-02] MEDS: FOLIC ACID 1 MG TAB PO SCH (10:15)
[2021-09-02] MEDS: DOCUSATE SODIUM 100 MG (COLACE) CAP PO SCH (10:15)
[2021-09-02] MEDS: SENNOSIDES 8.6 MG (SENOKOT) TAB PO SCH (10:15)
[2021-09-02] MEDS: VANCOMYCIN 1 GM/NS 250 ML IVPB IV SCH ×2 (11:58)
[2021-09-02 12:11] VITALS: BP 132/80
[2021-09-02] MEDS ORDERED: AMOX1TAB12 PO (13:03)
[2021-09-02] MEDS ORDERED: SULF1TAB38 PO (13:03)
--- NOTE | 2021-09-02 16:04 | Cardiology Progress Note ---
Subjective Date Seen by Provider: Sep 02, 2021 Time Seen by Provider: 11:15 Subjective/Events-last exam Patient was seen and evaluated at bedside, he was sitting in a chair comfortable Denied any chest pain or shortness of breath. Review of Systems General: No Chills, No Night Sweats, No Fatigue, No Malaise, No Appetite, No Other HEENT: No Head Aches, No Visual Changes, No Eye Pain, No Ear Pain, No Dysphasia, No Sinus Congestion, No Post Nasal Drip, No Sore Throat, No Other Pulmonary: No Dyspnea, No Cough, No Pleuritic Chest Pain, No Other Cardiovascular: No: Chest Pain, Palpitations, Orthopnea, Paroxysmal Noc. Dyspn ea, Edema, Lt Headedness, Other Focused Exam Lactate Level 08/30/21 19:29: Lactic Acid Level 1.47 Objective-Cardiology Exam Last Set of Vital Signs Vital Signs 09/02/21 09/02/21 12:11 12:52 Temp 36.8 Pulse 73 Resp 18 B/P (MAP) 132/80 (97) Pulse Ox 97 O2 Delivery Room Air I&O Intake and Output 09/02/21 00:00 Intake Total 2510 ml Output Total 1600 ml Balance 910 ml Intake Oral 2160 ml IV Total 350 ml Output Urine Total 1600 ml # Voids 2 # Bowel Movements 1 General: Alert, Oriented X3, Cooperative HEENT: Atraumatic, PERRLA Neck: Supple, No JVD, No Thyromegaly Lungs: Clear to Auscultation, Normal Air Movement Heart: Regular Rate, Normal S1, Normal S2, No Murmurs Abdomen: Normal Bowel Sounds, Soft, No Tenderness, No Hepatosplenomegaly, No Masses Extremities: No Clubbing, No Cyanosis, No Edema, Normal Pulses, No Tenderness/Swelling Skin: No Rashes, No Significant Lesion Neuro: Normal Gait, Normal Speech, Strength at 5/5 X4 Ext, Normal Tone, Sensation Intact Psych/Mental Status: Mental Status NL, Mood NL Results Lab Laboratory Tests 09/02/21 05:23 A/P-Cardiology Admission Diagnosis Nonhealing foot ulcer Tobaccoism Hypertension Hyperlipidemia Assessment/Plan Non-healing wounds to 4th toes bilat - s/p amputations per Dr. Roe - arterial doppler of 08-31-21 showed: Normal arterial Doppler of lower extremities I visited and discussed with him the management plan, conservative management is recommended Continue to monitor, okay for discharge. Educated on avoiding tobacco and alcohol use. MPI of 04/25/19: no ischemia or infarction, LVEF 64% Echo of 04/21/19: LVEF 60-65%, mild conc LVH, RVSP 25 mmHg DM II Chronic tobacco use (smoking) H/O Chronic low back pain Chronic ETOH abuse - 4-6 drink of hard liquor daily H/O GI bleed in June 2019 - UGI treated with cauterization per pt report Fam h/o or early CAD (father of [place] in his early 60s) PTSD LADARIUS MOE MD Sep 02, 2021 16:04
--- NOTE | 2021-09-02 21:18 | Discharge Summary ---
Discharge Summary Hospital Course Problems/Dx: (1) Sepsis Status: Acute (2) Osteomyelitis Status: Acute Qualifiers: (3) T2DM (type 2 diabetes mellitus) Status: Acute Qualifiers: Qualified Codes: E11.65 - Type 2 diabetes mellitus with hyperglycemia; Z79.4 - MCC (current) use of insulin (4) Tobacco abuse Status: Chronic (5) ETOH abuse Status: Chronic Hospital Course Date of Admission: Aug 30, 2021 at 20:39 Admission Diagnosis : Sepsis due to osteomyelitis Family Physician/Provider: NatashaLocal Physician Date of Discharge: 09/02/21 Discharge Diagnosis: Sepsis due to osteomyelitis Hospital Course: Sean Helms is a 51 year old male who was admitted with sepsis due to osteomyelitis. He was found to have diabetic foot ulcers and osteomyelitis of the bilateral 4th toes. Surgery was consulted and performed amputations. He was treated with IV antibiotics and then transitioned to Augmentin. Wound care was consulted and he will follow up with them outpatient. He was discharged home in stable condition. He should follow up with his PCP in about a week. Labs and Pending Lab Test: Laboratory Tests 09/02/21 04:55: Glucometer 119H 09/02/21 05:23: White Blood Count 9.3, Red Blood Count 2.95L, Hemoglobin 8.1#L, Hematocrit 26L, Mean Corpuscular Volume 89, Mean Corpuscular Hemoglobin 27, Mean Corpuscular Hemoglobin Concent 31L, Red Cell Distribution Width 13.9, Platelet Count 282, Mean Platelet Volume 9.0, Immature Granulocyte % (Auto) 0, Neutrophils (%) (Auto) 55, Lymphocytes (%) (Auto) 35, Monocytes (%) (Auto) 10, Eosinophils (%) (Auto) 0, Basophils (%) (Auto) 1, Neutrophils # (Auto) 5.1, Lymphocytes # (Auto) 3.2, Monocytes # (Auto) 0.9, Eosinophils # (Auto) 0.0, Basophils # (Auto) 0.1, Immature Granulocyte # (Auto) 0.0, Sodium Level 142, Potassium Level 4.1, Chloride Level 106, Carbon Dioxide Level 26, Anion Gap 10, Blood Urea Nitrogen 10, Creatinine 1.07, Estimat Glomerular Filtration Rate 85, BUN/Creatinine Ratio 9, Glucose Level 131H, Calcium Level 9.2, Corrected Calcium 9.9, Total Bilirubin 0.3, Aspartate Amino Transf (AST/SGOT) 10, Alanine Aminotransferase (ALT/SGPT) 16, Alkaline Phosphatase 72, Total Protein 6.7, Albumin 3.1L 09/02/21 11:19: Glucometer 263H Microbiology 08/31/21 Gram Stain - Final, Resulted 08/31/21 Anaerobic Culture, Resulted Pending 08/31/21 Surgical Culture - Preliminary, Resulted Mixed Bacterial [place] Group B Streptococci Staphylococcus aureus 08/31/21 MRSA Screen - Final, Complete MRSA not isolated 08/30/21 Blood Culture - Preliminary, Resulted No growth Home Meds Active Bactrim Ds Tablet (Sulfamethoxazole/Trimethoprim) 1 Each Tablet 1 Each PO BID 5 Days Amox Tr-K Clv 875-125 mg Tab (Amoxicillin/Potassium Clav) 875 Mg-125 Mg Tablet 1 Each PO BID 5 Days Reported Trazodone HCl 100 Mg Tablet 100 Mg PO HS PRN Sertraline HCl 100 Mg Tablet 100 Mg PO HS Pantoprazole Sodium 40 Mg Tablet.dr 40 Mg PO HS One Daily Plus Minerals (Multivitamin with Minerals) 1 Each Tablet 1 Each PO HS Metformin HCl ER (Metformin HCl) 500 Mg Tab.er.24 500 Mg PO HS Levemir Flextouch (Insulin Detemir) 100 Unit/Ml (3 Ml) Insuln.pen 26 Unit SQ HS Ferrous Sulfate 324 Mg (65 Mg Iron) Tablet.dr 324 Mg PO HS Vitamin D3 (Cholecalciferol (Vitamin D3)) 25 Mcg (1000 Unit) Tablet 25 Mcg PO HS Atorvastatin Calcium 80 Mg Tablet 40 Mg PO TWICE WEEKLY @HS Vitamin C (Ascorbate Calcium) 500 Mg Tablet 500 Mg PO HS Nesina (Alogliptin Benzoate) 25 Mg Tablet 25 Mg PO HS Proair Hfa (Albuterol Sulfate) 1 Puff Puff 2 Puff IH QID PRN Tylenol Extra Strength (Acetaminophen) 500 Mg Tablet 1,000 Mg PO TID PRN Assessment/Pt Instructions See instructions Discharge Planning: >30 minutes discharge planning Discharge Instructions Discharge Diet: ADA Diet Activity as Tolerated: Yes Consultations Surgery, Cardiology, Wound care Discharge Physical Examination Vital Signs Vital Signs Date Time Temp Pulse Resp B/P (MAP) Pulse Ox O2 Delivery O2 Flow Rate FiO2 09/02/21 12:52 73 09/02/21 12:11 36.8 18 132/80 (97) 97 Room Air 08/31/21 14:02 4 General Appearance: No Apparent Distress, Thin Respiratory: Lungs Clear, No Respiratory Distress Cardiovascular: Regular Rate, Rhythm, No Murmur Gastrointestinal: Normal Bowel Sounds, Soft Extremity: Normal Inspection, No Pedal Edema Skin: Normal Color, Warm/Dry Neurologic/Psychiatric: Alert, Normal Mood/Affect Allergies: Coded Allergies: No Known Drug Allergies (Unverified , 10/16/15) Discharge Summary Date of Admission Aug 30, 2021 at 20:39 Date of Discharge Sep 02, 2021 at 14:48 Discharge Date: Sep 02, 2021 Discharge Time: 1430 Admission Diagnosis Sepsis due to osteomyelitis Discharge Diagnosis Sepsis due to osteomyelitis (1) Sepsis Status: Acute (2) Osteomyelitis Status: Acute Qualifiers: (3) T2DM (type 2 diabetes mellitus) Status: Acute Qualifiers: Qualified Codes: E11.65 - Type 2 diabetes mellitus with hyperglycemia; Z79.4 - MCC (current) use of insulin (4) Tobacco abuse Status: Chronic (5) ETOH abuse Status: Chronic SHIN FALCON MD Sep 02, 2021 21:18
== END 2021-09-02 14:48 | disposition home or self-care (01) | DRG 854 ==
LOC: EDUNIT# 18:27 → ER 18:28 → 4TH 20:39
PROVIDERS: ADMIT Internal Medicine; ATTEND Internal Medicine
PROC: 0Y6V0Z0 Detachment at Right 4th Toe, Complete, Open Approach (ICD-10-PCS; 2021-08-31)
PROC: 0Y6W0Z0 Detachment at Left 4th Toe, Complete, Open Approach (ICD-10-PCS; principal; 2021-08-31 12:37)
DX: A41.9 Sepsis, unspecified organism (principal); M86.8X7 Other osteomyelitis, ankle and foot; M84.675A Pathological fracture in other disease, left foot, initial encounter for fracture; L02.612 Cutaneous abscess of left foot; L02.611 Cutaneous abscess of right foot; E11.621 Type 2 diabetes mellitus with foot ulcer; L97.529 Non-pressure chronic ulcer of other part of left foot with unspecified severity; F17.210 Nicotine dependence, cigarettes, uncomplicated; J45.909 Unspecified asthma, uncomplicated; Z20.822 Contact with and (suspected) exposure to COVID-19; G89.29 Other chronic pain; M54.9 Dorsalgia, unspecified; F41.9 Anxiety disorder, unspecified; F32.A Depression, unspecified; F43.10 Post-traumatic stress disorder, unspecified; E11.69 Type 2 diabetes mellitus with other specified complication; E11.65 Type 2 diabetes mellitus with hyperglycemia; F10.10 Alcohol abuse, uncomplicated; K21.9 Gastro-esophageal reflux disease without esophagitis; E78.5 Hyperlipidemia, unspecified; Z79.84 Long term (current) use of oral hypoglycemic drugs; Z79.899 Other long term (current) drug therapy
CPT/HCPCS: 36415; 71045; 73630; 80053; 80061; 80202; 82947; 83605; 85025; 85610; 85730; 87040; 87070; 87075; 87077; 87081; 87186; 87205; 87636; 93005; 93922; 93925

== ENCOUNTER → 2021-09-06 | Outpatient (CLI) | payer OTHER ==
[~2021-09-06] MED LIST changes: +ACET-2267 PO; +ALOG25TA PO; +AMOX1TAB12 PO; +ASCO-262 PO; +ATOR80TA76 PO; +CHOL-34 PO; +FERR324T4 PO; +INSU100I29 SQ; +METF-478 PO; +MULT-422 PO; +PANT40TA52 PO; +RT-ALBUINH IH; +SERT-414 PO; +SULF1TAB38 PO; +TRAZ-227 PO
== END ==
LOC: WOUNDCARE 13:18
PROVIDERS: ATTEND Family Medicine
DX: T81.31XA Disruption of external operation (surgical) wound, not elsewhere classified, initial encounter (principal); E11.621 Type 2 diabetes mellitus with foot ulcer; B95.62 Methicillin resistant Staphylococcus aureus infection as the cause of diseases classified elsewhere; B95.1 Streptococcus, group B, as the cause of diseases classified elsewhere; B35.3 Tinea pedis; L98.1 Factitial dermatitis; D64.9 Anemia, unspecified; E11.65 Type 2 diabetes mellitus with hyperglycemia; E11.40 Type 2 diabetes mellitus with diabetic neuropathy, unspecified; F17.218 Nicotine dependence, cigarettes, with other nicotine-induced disorders
CPT/HCPCS: 11042

== ENCOUNTER → 2021-09-15 | Outpatient (CLI) | payer OTHER | LOC: WOUNDCARE 13:41 | PROVIDERS: ATTEND Family Medicine | DX: T81.31XA Disruption of external operation (surgical) wound, not elsewhere classified, initial encounter (principal); E11.621 Type 2 diabetes mellitus with foot ulcer; B95.62 Methicillin resistant Staphylococcus aureus infection as the cause of diseases classified elsewhere; B35.3 Tinea pedis; F17.218 Nicotine dependence, cigarettes, with other nicotine-induced disorders; L98.1 Factitial dermatitis; D64.9 Anemia, unspecified; E11.65 Type 2 diabetes mellitus with hyperglycemia; E11.40 Type 2 diabetes mellitus with diabetic neuropathy, unspecified; E11.52 Type 2 diabetes mellitus with diabetic peripheral angiopathy with gangrene; I96 Gangrene, not elsewhere classified | CPT/HCPCS: 11042 ==

== ENCOUNTER → 2021-09-29 | Outpatient (CLI) | payer OTHER | LOC: WOUNDCARE 13:50 | PROVIDERS: ATTEND Family Medicine | DX: T81.31XA Disruption of external operation (surgical) wound, not elsewhere classified, initial encounter (principal); E11.621 Type 2 diabetes mellitus with foot ulcer; B95.62 Methicillin resistant Staphylococcus aureus infection as the cause of diseases classified elsewhere; B95.1 Streptococcus, group B, as the cause of diseases classified elsewhere; B35.3 Tinea pedis; F17.200 Nicotine dependence, unspecified, uncomplicated; L98.1 Factitial dermatitis; D64.9 Anemia, unspecified; E11.65 Type 2 diabetes mellitus with hyperglycemia; E11.40 Type 2 diabetes mellitus with diabetic neuropathy, unspecified; L23.3 Allergic contact dermatitis due to drugs in contact with skin; E11.52 Type 2 diabetes mellitus with diabetic peripheral angiopathy with gangrene; I96 Gangrene, not elsewhere classified | CPT/HCPCS: 11042 ==

== ENCOUNTER → 2021-10-06 | Outpatient (CLI) | payer OTHER | LOC: WOUNDCARE 09:38 | PROVIDERS: ATTEND Family Medicine | DX: T81.31XA Disruption of external operation (surgical) wound, not elsewhere classified, initial encounter (principal); E11.622 Type 2 diabetes mellitus with other skin ulcer; L97.509 Non-pressure chronic ulcer of other part of unspecified foot with unspecified severity; F17.218 Nicotine dependence, cigarettes, with other nicotine-induced disorders; L98.1 Factitial dermatitis; D64.9 Anemia, unspecified; E11.65 Type 2 diabetes mellitus with hyperglycemia; E11.40 Type 2 diabetes mellitus with diabetic neuropathy, unspecified; L23.3 Allergic contact dermatitis due to drugs in contact with skin; E11.22 Type 2 diabetes mellitus with diabetic chronic kidney disease; I96 Gangrene, not elsewhere classified | CPT/HCPCS: 11042 ==

== ENCOUNTER → 2021-10-17 | Outpatient (CLI) | payer OTHER ==
[~2021-10-17] MED LIST changes: +GADOTERATE 0.5 MMOL/ML (CLARISCAN) 15 ML VIAL IV ONE
--- NOTE | 2021-10-17 09:08 | Diagnostic Imaging Report ---
Exam: MRI left foot without and with intravenous contrast. Date: October 17, 2021. Indication: 51-year-old male, left foot pain. Open ulcers. Evaluation for osteomyelitis. Comparison: Left foot radiographs August 30, 2021. Technique: Multiple pre and postcontrast MRI sequences of the left foot were obtained. Findings: There is T1 marrow signal loss, marrow edema, and enhancement of the fourth metatarsal extending from the level of the fourth metatarsal head to the level of the mid diaphysis with marrow signal abnormalities extending approximately 3.5 cm proximal to the distal articulating surface. This is consistent with osteomyelitis. There is normal variant congenital fusion of the fifth digit middle and distal phalanges. The additional bone marrow signal is unremarkable in the included [id number]. The fourth digit phalanges are absent. There is a dorsal skin defect at the level of the distal aspect of the remaining portions of the fourth digit consistent with an open wound. There is an underlying peripherally enhancing fluid collection contacting the fourth metatarsal measuring approximately 5 x 4 x 12 mm in size compatible with abscess. There is adjacent soft tissue enhancement. There is no additional identified focal fluid collection. There are large areas of non-enhancement of the volar soft tissues spanning an axial extent of approximately 6.8 x 1.4 cm and a craniocaudal extent of approximately 2.8 cm at the level of the first through fourth metatarsophalangeal joints which does raise concern for an area of devascularize or devitalized tissue. There is no evidence of tenosynovitis. There is no joint effusion or joint space loss. Impression: 1. Dorsal skin defect at the level of the distal aspect of the remaining portion of the fourth digit with underlying abscess directly contacting the fourth metatarsal head measuring 5 x 4 x 12 mm in size. 2. Osteomyelitis of the fourth metatarsal which extends approximately 3.5 cm proximal to the distal articulating surface. 3. Large area of nonenhancing volar soft tissues centered at the level of the first through fourth metatarsophalangeal joints measuring 6.8 x 1.4 x 2.8 cm in size concerning for area of devascularized or devitalized tissue. Dictated by: Dictated on workstation # [id number]
--- NOTE | 2021-10-17 09:50 | Diagnostic Imaging Report ---
Exam: MRI right foot without and with intravenous contrast. Date: October 17, 2021. Indication: 51-year-old male, right foot pain. Ulcer. Concern for osteomyelitis. Comparison: Right foot radiographs August 31, 2021. Technique: Multiple pre and postcontrast MRI sequences of the right thigh were obtained. Findings: There is a dorsal skin defect at the level of the distal aspect of the remaining portion of the fourth digit. Fourth digit phalanges are absent. There is an area of nonenhancing tissue extending from the skin defect nearly directly contacting the fourth metatarsal head. This measures approximately 13 x 9 x 13 mm in size. There is adjacent soft tissue edema and enhancement. There is no additional identified focal fluid collection. There is T1 marrow signal loss of the fourth metatarsal head with abnormal marrow edema extending to the level of the proximal metadiaphysis. Marrow signal abnormalities extending approximately 2.0 cm proximal to the distal articulating surface. There does appear to be mild fragmentation of the fourth metatarsal head best demonstrated on long axis TI sequence series 5 image 8. There is normal variant congenital fusion of the fifth digit middle and distal phalanges. There is a tear with retraction of the fourth digit flexor tendons. There is no evidence of tenosynovitis. The joint spaces are well preserved. There is no joint effusion. There is dorsal subcutaneous edema. There is no identified focal fluid collection or abscess. Impression: 1. Dorsal skin defect at the level of the distal aspect of the remaining portions of the fourth digit with contiguous underlying abnormal fluid measuring 13 x 8 x 12 mm in size. Directly contacting the fourth metatarsal head. 2. Osteomyelitis of the fourth metatarsal extending approximately 2 cm distal to the distal articulating surface. 3. Tear with retraction of the fourth digit flexor tendons. No evidence of tenosynovitis. 4. No evidence of septic arthritis. Dictated by: Dictated on workstation # [id number]
== END ==
LOC: RAD 08:00
PROVIDERS: ATTEND Family Medicine
DX: E11.621 Type 2 diabetes mellitus with foot ulcer (principal); S96.011A Strain of muscle and tendon of long flexor muscle of toe at ankle and foot level, right foot, initial encounter; M86.8X7 Other osteomyelitis, ankle and foot
CPT/HCPCS: 73720

== ENCOUNTER → 2021-10-20 | Outpatient (CLI) | payer OTHER ==
[~2021-10-20] MED LIST changes: -GADOTERATE 0.5 MMOL/ML (CLARISCAN) 15 ML VIAL IV ONE
== END ==
LOC: WOUNDCARE 13:35
PROVIDERS: ATTEND Family Medicine
DX: T81.31XA Disruption of external operation (surgical) wound, not elsewhere classified, initial encounter (principal); E11.621 Type 2 diabetes mellitus with foot ulcer; L98.1 Factitial dermatitis; D64.9 Anemia, unspecified; E11.65 Type 2 diabetes mellitus with hyperglycemia; E11.40 Type 2 diabetes mellitus with diabetic neuropathy, unspecified; M86.172 Other acute osteomyelitis, left ankle and foot; M86.171 Other acute osteomyelitis, right ankle and foot; B95.61 Methicillin susceptible Staphylococcus aureus infection as the cause of diseases classified elsewhere; L23.3 Allergic contact dermatitis due to drugs in contact with skin; E11.52 Type 2 diabetes mellitus with diabetic peripheral angiopathy with gangrene; F17.218 Nicotine dependence, cigarettes, with other nicotine-induced disorders
CPT/HCPCS: 11042; 36415; 85652; 86141

== ENCOUNTER → 2021-10-27 | Outpatient (CLI) | payer OTHER | LOC: WOUNDCARE 13:46 | PROVIDERS: ATTEND Family Medicine | DX: T81.31XA Disruption of external operation (surgical) wound, not elsewhere classified, initial encounter (principal); E11.621 Type 2 diabetes mellitus with foot ulcer; L97.509 Non-pressure chronic ulcer of other part of unspecified foot with unspecified severity; F17.218 Nicotine dependence, cigarettes, with other nicotine-induced disorders; L98.1 Factitial dermatitis; D64.9 Anemia, unspecified; E11.65 Type 2 diabetes mellitus with hyperglycemia; E11.40 Type 2 diabetes mellitus with diabetic neuropathy, unspecified; L23.3 Allergic contact dermatitis due to drugs in contact with skin; M86.172 Other acute osteomyelitis, left ankle and foot; M86.171 Other acute osteomyelitis, right ankle and foot; B95.62 Methicillin resistant Staphylococcus aureus infection as the cause of diseases classified elsewhere; E11.52 Type 2 diabetes mellitus with diabetic peripheral angiopathy with gangrene; I96 Gangrene, not elsewhere classified | CPT/HCPCS: 11044 ==

== ENCOUNTER → 2021-11-03 | Outpatient (CLI) | payer OTHER ==
[2021-11-03 14:37] LABS: POTASSIUM 4.4 MMOL/L (3.6-5.0)
[2021-11-03 14:38] LABS: CALCIUM 9.9 MG/DL (8.5-10.1)
[2021-11-03 14:42] LABS: CREATININE SERUM 1.31 MG/DL (0.60-1.30)
== END ==
LOC: WOUNDCARE 13:44
PROVIDERS: ATTEND Family Medicine
DX: T81.31XA Disruption of external operation (surgical) wound, not elsewhere classified, initial encounter (principal); E11.621 Type 2 diabetes mellitus with foot ulcer; L98.1 Factitial dermatitis; D64.9 Anemia, unspecified; E11.65 Type 2 diabetes mellitus with hyperglycemia; E11.40 Type 2 diabetes mellitus with diabetic neuropathy, unspecified; M86.172 Other acute osteomyelitis, left ankle and foot; M86.171 Other acute osteomyelitis, right ankle and foot; B95.62 Methicillin resistant Staphylococcus aureus infection as the cause of diseases classified elsewhere; L23.3 Allergic contact dermatitis due to drugs in contact with skin; E11.52 Type 2 diabetes mellitus with diabetic peripheral angiopathy with gangrene; F17.218 Nicotine dependence, cigarettes, with other nicotine-induced disorders
CPT/HCPCS: 11042; 11044; 36415; 80048

== ENCOUNTER → 2021-11-08 | Outpatient (CLI) | payer OTHER | END | disposition home or self-care (01) | LOC: PREOP 05:32 | PROVIDERS: ATTEND Surgery | DX: Z01.818 Encounter for other preprocedural examination (principal) ==

== ENCOUNTER → 2022-09-05 | Outpatient (CLI) | payer OTHER ==
[~2022-09-05] MED LIST changes: +ALBU8.5H6 IH; -INSU100I29 SQ; +INSU100I30 SQ; -RT-ALBUINH IH
--- NOTE | 2022-09-05 14:19 | Diagnostic Imaging Report ---
INDICATION: Peripheral vascular disease Bilateral ankle brachial index. Pressures were recorded of the brachial arteries and in the dorsalis pedis and posterior tibial arteries at the ankle. Ankle brachial index on the right is 1.02. Ankle brachial index on the left is 1.02. IMPRESSION: Normal bilateral ankle brachial indices. Dictated by: Dictated on workstation # [id number]
== END ==
LOC: RAD 09:00
PROVIDERS: ATTEND Nurse Practitioner
DX: Z01.89 Encounter for other specified special examinations (principal); I73.9 Peripheral vascular disease, unspecified
CPT/HCPCS: 93922